=== PATIENT | male | born 2000 | race Caucasian/White ===

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

== ENCOUNTER → 2020-01-15 | Outpatient (CLI) | payer OTHER | LOC: M LABSMTC 13:05 | PROVIDERS: ATTEND Family Medicine | DX: Z20.828 Contact with and (suspected) exposure to other viral communicable diseases (principal) | CPT/HCPCS: C9803; U0003 ==

== ENCOUNTER 2020-01-21 08:50 | Emergency (ER) | payer OTHER ==
[~2020-01-21] VITALS: Ht 172.7 cm; Wt 63.5 kg
--- NOTE | 2020-01-21 10:29 | REPVR ---
PROCEDURE INFORMATION: Exam: CT Neck Without Contrast Exam date and time: 01/21/2020 9:54 AM Age: 19 years old Clinical indication: Injury or trauma; Other: Hanging; Constriction/strangulation; Additional info: Neck injury/pain TECHNIQUE: Imaging protocol: Computed tomography images of the neck without contrast. Radiation optimization: All CT scans at this facility use at least one of these dose optimization techniques: automated exposure control; mA and/or kV adjustment per patient size (includes targeted exams where dose is matched to clinical indication); or iterative reconstruction. COMPARISON: No relevant prior studies available. FINDINGS: Brain: The visualized brain parenchyma is unremarkable. Mastoid air cells: The visualized mastoid air cells are clear. Paranasal sinuses: The visualized paranasal sinuses are clear. There are no air fluid levels to suggest acute sinusitis. Nasopharynx: Unremarkable. Oropharynx: Unremarkable. No significant tonsillar enlargement. Hypopharynx: Unremarkable. Larynx: Unremarkable. Normal epiglottis. Retropharyngeal space: Unremarkable. Submandibular/Parotid glands: Normal. Glands are normal in size. Thyroid: Normal. No enlarged or calcified nodules. Lymph nodes: Unremarkable. No lymphadenopathy. Trachea: Visualized trachea is unremarkable. Lungs: The visualized portions of the lung apices are normal. Bones/joints: The visualized osseous structures are unremarkable. No acute fracture or dislocation is seen. The cervical vertebral bodies are normal height and alignment.No acute fracture or dislocation is seen. The atlantoaxial articulation is normal. Soft tissues: The prevertebral soft tissues appear normal. IMPRESSION: No significant tracheal injury is seen. No discrete solid or cystic masses are identified. There is no evidence for subcutaneous emphysema. Electronically signed by: Nii Carrion On 01/21/2020 10:29:15 AM
[2020-01-21 11:07] VITALS: BP 147/81
== END 2020-01-21 11:10 | disposition home or self-care (01) ==
LOC: M ED 08:50
DX: S19.9XXA Unspecified injury of neck, initial encounter (principal); Y92.9 Unspecified place or not applicable; Y93.9 Activity, unspecified; Y99.9 Unspecified external cause status; F17.200 Nicotine dependence, unspecified, uncomplicated; F41.9 Anxiety disorder, unspecified; F31.9 Bipolar disorder, unspecified

== ENCOUNTER → 2020-03-07 | Outpatient (CLI) | payer OTHER | LOC: M LABSMTC 11:31 | PROVIDERS: ATTEND Family Medicine | DX: Z20.828 Contact with and (suspected) exposure to other viral communicable diseases (principal) ==

== ENCOUNTER 2020-03-15 09:47 | Emergency (ER) | payer OTHER ==
[~2020-03-15] VITALS: Ht 170.2 cm; Wt 59.8 kg
[2020-03-15 09:47] VITALS: BP 131/82
[2020-03-15] MEDS ORDERED: LIDOCAINE 2% MDV 20ML VIAL SC ONE (10:30)
== END 2020-03-15 12:45 | disposition home or self-care (01) ==
LOC: M ED 09:47
DX: S61.212A Laceration without foreign body of right middle finger without damage to nail, initial encounter (principal); W01.198A Fall on same level from slipping, tripping and stumbling with subsequent striking against other object, initial encounter; Y92.019 Unspecified place in single-family (private) house as the place of occurrence of the external cause; Y93.9 Activity, unspecified; F41.9 Anxiety disorder, unspecified; F31.9 Bipolar disorder, unspecified; F17.200 Nicotine dependence, unspecified, uncomplicated

== ENCOUNTER → 2020-04-06 | Outpatient (CLI) | payer SELFPAY ==
[~2020-04-06] MED LIST changes: +NICO1DIS12 TD; -NICO21DI31 TD
== END ==
LOC: M LABSMTC 12:58
PROVIDERS: ATTEND Pediatrics
DX: Z20.828 Contact with and (suspected) exposure to other viral communicable diseases (principal)

== ENCOUNTER 2020-06-12 01:32 | Emergency (ER) | payer OTHER, SELFPAY ==
[~2020-06-12] VITALS: Ht 172.7 cm; Wt 59.6 kg
[2020-06-12 01:33] VITALS: BP 135/87
--- OUTSIDE RECORDS SUMMARY | 2020-06-12 01:41 | CCD ---
Author Author [facility] Organization [facility] Address Unknown Phone Unavailable Support Name Relationship Address Phone [facility] [place] [address] Unavailable [place] [address] SK* Next Of Kin [address] [place] [address] MARCELINO [place] [address] Joni Irving Next Of Kin Unknown Unavailable Eloisa Rg Next Of Kin [address] [place] [address] Karuna Milner Next Of Kin [address] [place] [address] ST Next Of Kin Unknown Unavailable Dominga Mcdonald Next Of Kin [address] [place] [address] THEODORE WHARTON Next Of Kin [address] [id number] STATED, NONE Next Of Kin Unknown Jordan Malloy MD Next Of Kin [address] [place] [address] ROBERTA MELCHOR Next Of Kin Unknown NO, ONE Next Of Kin Unknown JONI LEBLANC Next Of Kin [address] [place] [address] UE Next Of Kin Unknown Unavailable TONNY MARIE Next Of Kin [address] [place] [address] ELINA MORILLO Next Of Kin [address] [id number] [facility] Next Of Kin [address] [place] [address] [place] [id number] STEVE FALCON Next Of Kin [address] [place] [address] Sandy Rodriguez Next Of Kin [address] [place] [address] ANANYA HOU Next Of Kin [address] [place] [address] UN Next Of Kin Unknown Unavailable Rickey HOU Next Of Kin [address] [place] [address] SANDY ANTHONY Next Of Kin [address] [place] [address] CHILD Next Of Kin Unknown Unavailable SANDY WALTON Next Of Kin [address] [address] Care Team Providers 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 Role Phone KAREN SEAMAN MIXER WET POUR Unavailable Unavailable KAREN SEAMAN MIXER WET POUR Unavailable Unavailable KAREN SEAMAN MIXER WET POUR Unavailable Unavailable KAREN SEAMAN MIXER WET POUR Unavailable Unavailable KAREN SEAMAN MIXER WET POUR Unavailable Unavailable KAREN SEAMAN MIXER WET POUR Unavailable Unavailable MELIZA, L TIMOTHY PA Unavailable Unavailable MELIZA, L TIMOTHY PA Unavailable Unavailable MELIZA, L TIMOTHY PA Unavailable Unavailable MELIZA, L TIMOTHY PA Unavailable Unavailable MELIZA, L TIMOTHY PA Unavailable Unavailable MELIZA, L TIMOTHY PA Unavailable Unavailable MELIZA, L TIMOTHY PA Unavailable Unavailable MELIZA, L TIMOTHY PA Unavailable Unavailable MELIZA, L TIMOTHY PA Unavailable Unavailable MELIZA, L TIMOTHY PA Unavailable Unavailable MELIZA, L TIMOTHY PA Unavailable Unavailable MELIZA, L TIMOTHY PA Unavailable Unavailable MELIZA, L TIMOTHY PA Unavailable Unavailable MELIZA, L TIMOTHY PA Unavailable Unavailable MELIZA, L TIMOTHY PA Unavailable Unavailable MELIZA, L TIMOTHY PA Unavailable Unavailable MELIZA, L TIMOTHY PA Unavailable Unavailable MELIZA, L TIMOTHY PA Unavailable Unavailable MELIZA, L TIMOTHY PA Unavailable Unavailable HERNANDEZ, GUALBERTO Unavailable Unavailable Dominga Arthur COMMUNITY SPORTS COORDINATOR COMMUNITY SPORTS COORDINATOR Unavailable Unavailable Saroj Arthur COMMUNITY SPORTS COORDINATOR-BC Unavailable Unavailable Jerson F Dominga COMMUNITY SPORTS COORDINATOR-BC Unavailable Unavailable Jerson, F Dominga COMMUNITY SPORTS COORDINATOR-BC Unavailable Unavailable Jerson, F Dominga COMMUNITY SPORTS COORDINATOR-BC Unavailable Unavailable Jerson F Dominga COMMUNITY SPORTS COORDINATOR-BC Unavailable Unavailable Arthur, F Dominga COMMUNITY SPORTS COORDINATOR-BC Unavailable Unavailable Saroj Arthur Dominga COMMUNITY SPORTS COORDINATOR-BC Unavailable Unavailable Arthur F Dominga COMMUNITY SPORTS COORDINATOR-BC Unavailable Unavailable Arthur, F Dominga COMMUNITY SPORTS COORDINATOR-BC Unavailable Unavailable Arthur, F Dominga COMMUNITY SPORTS COORDINATOR-BC Unavailable Unavailable Arthur, F Dominga COMMUNITY SPORTS COORDINATOR-BC Unavailable Unavailable Arthur, F Dominga COMMUNITY SPORTS COORDINATOR-BC Unavailable Unavailable Arthur, F Dominga COMMUNITY SPORTS COORDINATOR-BC Unavailable Unavailable Arthur, F Dominga COMMUNITY SPORTS COORDINATOR-BC Unavailable Unavailable Arthur, F Dominga COMMUNITY SPORTS COORDINATOR-BC Unavailable Unavailable Arthur, F Dominga COMMUNITY SPORTS COORDINATOR-BC Unavailable Unavailable Arthur, F Dominga COMMUNITY SPORTS COORDINATOR-BC Unavailable Unavailable Arthur, F Dominga COMMUNITY SPORTS COORDINATOR-BC Unavailable Unavailable Arthur, F Dominga COMMUNITY SPORTS COORDINATOR-BC Unavailable Unavailable Arthur, F Dominga COMMUNITY SPORTS COORDINATOR-BC Unavailable Unavailable Arthur, F Dominga COMMUNITY SPORTS COORDINATOR-BC Unavailable Unavailable Arthur, F Dominga COMMUNITY SPORTS COORDINATOR-BC Unavailable Unavailable BUBBA, DOT BILLY PA-C Unavailable Unavailable BUBBA, DOT BILLY PA-C Unavailable Unavailable BUBBA, DOT BILLY PA-C Unavailable Unavailable BUBBA, DOT BILLY PA-C Unavailable Unavailable BUBBA, DOT BILLY PA-C Unavailable Unavailable BUBBA, DOT BILLY PA-C Unavailable Unavailable BUBBA, DOT BILLY PA-C Unavailable Unavailable BUBBA, DOT BILLY PA-C Unavailable Unavailable BUBBA, DOT BILLY PA-C Unavailable Unavailable Rickey Reddy MD Unavailable Unavailable Rickey Reddy MD Unavailable Unavailable Rickey Reddy MD Unavailable Unavailable BROWN, L VICENTE Unavailable Unavailable MORA, RASHAD KARUNA RPA-C Unavailable Unavailable MORA, RASHAD KARUNA RPA-C Unavailable Unavailable MORA, RASHAD KARUNA RPA-C Unavailable Unavailable MORA, RASHAD KARUNA RPA-C Unavailable Unavailable MORA, RASHAD KARUNA RPA-C Unavailable Unavailable MORA, RASHAD KARUNA RPA-C Unavailable Unavailable MORA, RASHAD KARUNA RPA-C Unavailable Unavailable MORA, RASHAD KARUNA RPA-C Unavailable Unavailable MORA, RASHAD KARUNA RPA-C Unavailable Unavailable MORA, RASHAD KARUNA RPA-C Unavailable Unavailable MORA, RASHAD KARUNA RPA-C Unavailable Unavailable MORA, RASHAD KARUNA RPA-C Unavailable Unavailable MORA, RASHAD KARUNA RPA-C Unavailable Unavailable MORA, RASHAD KARUNA RPA-C Unavailable Unavailable MORA, RASHAD KARUNA RPA-C Unavailable Unavailable MORA, RASHAD KARUNA RPA-C Unavailable Unavailable MORA, RASHAD KARUNA RPA-C Unavailable Unavailable MORA, RASHAD KARUNA RPA-C Unavailable Unavailable MORA, RASHAD KARUNA RPA-C Unavailable Unavailable MORA, RASHAD KARUNA RPA-C Unavailable Unavailable MORA, RASHAD KARUNA RPA-C Unavailable Unavailable MORA, RASHAD KARUNA RPA-C Unavailable Unavailable MORA, RASHAD KARUNA RPA-C Unavailable Unavailable MORA, RASHAD KARUNA RPA-C Unavailable Unavailable MORA, RASHAD KARUNA RPA-C Unavailable Unavailable MORA, RASHAD KARUNA RPA-C Unavailable Unavailable MORA, RASHAD KARUNA RPA-C Unavailable Unavailable MORA, RASHAD KARUNA RPA-C Unavailable Unavailable MORA, RASHAD KARUNA RPA-C Unavailable Unavailable MORA, RASHAD KARUNA RPA-C Unavailable Unavailable MORA, RASHAD KARUNA RPA-C Unavailable Unavailable MORA, RASHAD KARUNA RPA-C Unavailable Unavailable MORA, RASHAD KARUNA RPA-C Unavailable Unavailable MORA, RASHAD KARUNA RPA-C Unavailable Unavailable MORA, RASHAD KARUNA RPA-C Unavailable Unavailable MORA, RASHAD KARUNA RPA-C Unavailable Unavailable MORA, RASHAD KARUNA RPA-C Unavailable Unavailable MORA, RASHAD KARUNA RPA-C Unavailable Unavailable MORA, RASHAD KARUNA RPA-C Unavailable Unavailable ELIZABETH, EL Unavailable Unavailable DESJARLAIS, LISA MIXER WET POUR Unavailable Unavailable DESJARLAIS, LISA MIXER WET POUR Unavailable Unavailable DESJARLAIS, LISA MIXER WET POUR Unavailable Unavailable DESJARLAIS, LISA MIXER WET POUR Unavailable Unavailable DESJARLAIS, LISA MIXER WET POUR Unavailable Unavailable DESJARLAIS, LISA MIXER WET POUR Unavailable Unavailable DESJARLAIS, LISA MIXER WET POUR Unavailable Unavailable DESJARLAIS, LISA MIXER WET POUR Unavailable Unavailable DESJARLAIS, LISA MIXER WET POUR Unavailable Unavailable Tobin, Eloisa COMMUNITY SPORTS COORDINATOR COMMUNITY SPORTS COORDINATOR Unavailable Unavailable [facility], RFROST MORA PA KARUNA Unavailable Unavailable Tobin, A Eloisa COMMUNITY SPORTS COORDINATOR Unavailable Unavailable Tobin, A Eloisa COMMUNITY SPORTS COORDINATOR Unavailable Unavailable Tobin, A Eloisa COMMUNITY SPORTS COORDINATOR Unavailable Unavailable Tobin, A Eloisa COMMUNITY SPORTS COORDINATOR Unavailable Unavailable Tobin, A Eloisa COMMUNITY SPORTS COORDINATOR Unavailable Unavailable Tobin, A Eloisa COMMUNITY SPORTS COORDINATOR Unavailable Unavailable Tobin, A Eloisa COMMUNITY SPORTS COORDINATOR Unavailable Unavailable Tobin, A Eloisa COMMUNITY SPORTS COORDINATOR Unavailable Unavailable Tobin, A Eloisa COMMUNITY SPORTS COORDINATOR Unavailable Unavailable Tobin, A Eloisa COMMUNITY SPORTS COORDINATOR Unavailable Unavailable Tobin, A Eloisa COMMUNITY SPORTS COORDINATOR Unavailable Unavailable Tobin, A Eloisa COMMUNITY SPORTS COORDINATOR Unavailable Unavailable Tobin, A Eloisa COMMUNITY SPORTS COORDINATOR Unavailable Unavailable Tobin, A Eloisa COMMUNITY SPORTS COORDINATOR Unavailable Unavailable Tobin, A Eloisa COMMUNITY SPORTS COORDINATOR Unavailable Unavailable Tobin, A Eloisa COMMUNITY SPORTS COORDINATOR Unavailable Unavailable Tobin, A Eloisa COMMUNITY SPORTS COORDINATOR Unavailable Unavailable Tobin, A Eloisa COMMUNITY SPORTS COORDINATOR Unavailable Unavailable Tobin, A Eloisa COMMUNITY SPORTS COORDINATOR Unavailable Unavailable Tobin, A Eloisa COMMUNITY SPORTS COORDINATOR Unavailable Unavailable Tobin, A Eloisa COMMUNITY SPORTS COORDINATOR Unavailable Unavailable Tobin, A Eloisa COMMUNITY SPORTS COORDINATOR Unavailable Unavailable Tobin, A Eloisa COMMUNITY SPORTS COORDINATOR Unavailable Unavailable Tobin, A Eloisa COMMUNITY SPORTS COORDINATOR Unavailable Unavailable Tobin, A Eloisa COMMUNITY SPORTS COORDINATOR Unavailable Unavailable Tobin, A Eloisa COMMUNITY SPORTS COORDINATOR Unavailable Unavailable Tobin, A Eloisa COMMUNITY SPORTS COORDINATOR Unavailable Unavailable Tobin, A Eloisa COMMUNITY SPORTS COORDINATOR Unavailable Unavailable Re-disclosure Warning The records that you are about to access may contain information from federally-assisted alcohol or drug abuse programs. If such information is present, then the following federally mandated warning applies: This information has been disclosed to you from records protected by federal confidentiality rules (42 CFR part 2). The federal rules prohibit you from making any further disclosure of this information unless further disclosure is expressly permitted by the written consent of the person to whom it pertains or as otherwise permitted by 42 CFR part 2. A general authorization for the release of medical or other information is NOT sufficient for this purpose. The Federal rules restrict any use of the information to criminally investigate or prosecute any alcohol or drug abuse patient.The records that you are about to access may contain highly sensitive health information, the redisclosure of which is protected by Article 27-F of the [facility] Public Health law. If you continue you may have access to information: Regarding HIV / AIDS; Provided by facilities licensed or operated by the [facility] Office of Mental Health; or Provided by the [facility] Office for People With Developmental Disabilities. If such information is present, then the following [facility] mandated warning applies: This information has been disclosed to you from confidential records which are protected by state law. State law prohibits you from making any further disclosure of this information without the specific written consent of the person to whom it pertains, or as otherwise permitted by law. Any unauthorized further disclosure in violation of state law may result in a fine or detention sentence or both. A general authorization for the release of medical or other information is NOT sufficient authorization for further disc losure. Allergies and Adverse Reactions Type Description Substance Reaction Status Data Source(s ) Drug Class NO KNOWN ALLERGIES NO KNOWN ALLERGIES [facility] Family History Family Member Name Family Member Gender Family Member Status Date o f Status Description Data Source(s) Unknown Male Problem MEDENT ([facility]) () Encounters Encounter Providers Location Date Indications Data Source(s ) Karen Seaman NPP: [address] [place] [id number], Ph. Attender: KAREN SEAMAN NP [place] - [facility] Medical 05/24/2020 12:00:00 AM EST [facility] ([facility]) Outpatient Attender: Eloisa PENA 02/08/2020 03:5 3:01 PM EDT [facility] Outpatient Attender: JEAN ARREOLA 02/05/2020 01:19:01 P M EDT [facility] Outpatient Attender: Eloisa PENA 01/28/2020 04:1 6:01 PM EDT [facility] Outpatient Attender: JEAN ARREOLA 01/27/2020 10:34:00 A M EDT [facility] Outpatient Attender: Eloisa ARREOLA 01/27/2020 07:5 5:01 AM EDT [facility] Outpatient Attender: Eloisa ARREOLA 01/25/2020 12:1 8:01 PM EDT [facility] Outpatient Attender: JEAN ARREOLA 01/25/2020 10:46:00 A M EDT [facility] Outpatient Attender: JEAN ARREOLA 01/25/2020 08:57:01 A M EDT [facility] Emergency Attender: Brandon Reddy MD [id number] 06:10:00 PM EDT - 01/24/2020 03:52:00 AM EDT Laceration without foreign body of lip, initial encounter [facility] Laceration without foreign body of lip, initial encounter Patient discharged. Emergency Attender: TIMOTHY PARKER 06/2019 04:05:00 PM EDT - 01/23/2020 10:00:00 PM EDT [facility] Patient discharged. Outpatient Attender: Eloisa PENA FP 01/22/2020 10:4 8:02 AM EDT [facility] Outpatient Attender: Eloisa PENA FP 01/19/2020 08:3 2:00 AM EDT [facility] Outpatient Attender: Eloisa PENA FP 01/15/2020 01:3 2:01 PM EDT [facility] Outpatient Attender: JEAN PENA FP 01/15/2020 08:42:00 A M EDT [facility] Outpatient Attender: JEAN PENA FP 01/11/2020 11:27:01 A M EDT [facility] Outpatient Attender: JEAN PENA FP 12/18/2019 03:08:00 P M EDT [facility] Outpatient Attender: JEAN PENA FP 12/18/2019 10:14:03 A M EDT [facility] Outpatient Attender: Eloisa PENA FP 12/18/2019 10:1 3:01 AM EDT [facility] Outpatient Attender: JEAN PENA FP 12/18/2019 09:29:01 A M EDT [facility] Outpatient Attender: JEAN PENA FP 12/18/2019 09:21:00 A M EDT [facility] Outpatient Attender: JEAN PENA FP 12/17/2019 04:28:00 P M EDT [facility] Outpatient Attender: Eloisa PENA FP 12/17/2019 03:3 6:04 PM EDT [facility] Outpatient Attender: Eloisa PENA FP 12/17/2019 02:2 9:00 PM EDT [facility] Outpatient Attender: Eloisa PENA FP 12/17/2019 02:2 8:01 PM EDT [facility] Outpatient Attender: Eloisa PENA FP 12/17/2019 01:4 7:02 PM EDT [facility] Outpatient Attender: JEAN PENA FP 12/17/2019 01:13:00 P M EDT [facility] Outpatient Attender: JEAN PENA FP 12/17/2019 12:38:01 P M EDT [facility] Outpatient Attender: Eloisa ARREOLA 12/16/2019 03:5 4:01 PM EDT [facility] Outpatient Attender: Eloisa PENA FP 12/15/2019 08:3 9:01 AM EDT [facility] Outpatient Attender: JEAN PENA FP 11/18/2019 11:20:00 A M EDT [facility] Outpatient Attender: VICENTE DANIELS 11/12/2019 05:00:00 PM E [facility] Outpatient Attender: LISA SYKES MIXER WET POUR 11/10/2019 01: 40:00 PM [facility] Preadmit Attender: VICENTE DANIELS 11/10/2019 08:06:00 AM E [facility] Admission cancelled. Disregard status an d admitted date. Outpatient Attender: LISA SYKES NP 10/13/2019 01: 00:00 PM [facility] Outpatient Attender: JEAN ARREOLA 10/13/2019 09:55:00 A M EDT [facility] Outpatient Attender: JEAN PENA FP 10/06/2019 10:04:01 A M EDT [facility] Outpatient Attender: VICENTE DANIELS 10/05/2019 06:00:00 PM E [facility] Outpatient Attender: Eloisa PENA FP 09/25/2019 11:1 6:00 AM EDT [facility] Outpatient Attender: LISA SYKES MIXER WET POUR 09/22/2019 11: 40:00 AM [facility] Outpatient Attender: JEAN PENA FP 09/19/2019 12:14:36 A M EDT [facility] Outpatient Attender: JEAN PENA FP 09/18/2019 11:28:00 A M EDT [facility] Outpatient Attender: Eloisa ARREOLA 09/17/2019 03:0 1:00 PM EDT [facility] Outpatient Attender: JEAN ARREOLA 09/16/2019 09:01:04 P M EDT [facility] Outpatient Attender: JEAN ARREOLA 09/16/2019 11:50:00 A M EDT [facility] Outpatient Attender: JEAN ARREOLA 09/15/2019 04:14:02 P M EDT [facility] Outpatient Attender: JEAN Rudd COMMUNITY SPORTS COORDINATOR 09/15/2019 04:14:02 P M EDT [facility] Outpatient Attender: Eloisa Rudd COMMUNITY SPORTS COORDINATOR 09/15/2019 04:1 4:01 PM EDT [facility] Outpatient Attender: Eloisa Rudd COMMUNITY SPORTS COORDINATOR 09/14/2019 12:2 0:00 AM EDT [facility]patient [facility]: [facility] 09/14/2019 12:19:59 A M EDT [facility] Outpatient Attender: Eloisa Rudd [facility] 09/13/2019 07:4 3:00 PM EDT [facility] Outpatient Attender: COMMUNITY SPORTS COORDINATOR Tobin [facility] 09/11/2019 03:46:01 P M EDT [facility]patient Attender: JEAN Rudd [facility] 09/11/2019 03:35:00 P M EDT [facility] Outpatient Attender: VICENTE DANIELS 09/09/2019 04:00:00 PM E [facility] Outpatient Attender: LISA SYKES MIXER WET POUR 09/08/2019 03: 40:00 PM EDT [facility] Outpatient Attender: JEAN Rudd [facility] 09/08/2019 02:17:00 P M EDT [facility] Outpatient Attender: JEAN Rudd [facility] 09/08/2019 10:45:02 A M EDT [facility] Outpatient Attender: JEAN Rudd [facility] 09/08/2019 10:44:00 A M EDT [facility] Outpatient Attender: COMMUNITY SPORTS COORDINATOR Tobin [facility] 09/07/2019 10:02:00 A M EDT [facility] Outpatient Attender: VICENTE DANIELS 09/03/2019 09:30:00 AM E [facility] Outpatient Attender: ROLAN HOLT [facility] 07/22 05:12:00 PM EDT [facility] Outpatient Attender: KARUNA ZAPATA [facility] 08/18/2019 04:28:00 PM EDT [facility] Outpatient Attender: VICENTE DANIELS 08/12/2019 11:00:00 AM E [facility] Outpatient Attender: LISA SYKES MIXER WET POUR 08/05/2019 01: 20:00 PM [facility] Outpatient Attender: VICENTE DANIELS 08/03/2019 05:00:00 PM E [facility] Outpatient Attender: KARUNA ZAPATA [facility] 07/24/2019 10:00:02 AM EDT [facility] Outpatient Attender: MANGERMÁN ABBY MARESUPPER [facility] 06/2019 10:00:01 AM EDT [facility] Outpatient Attender: ROLAN HOLT [facility] 04/2019 02:30:03 PM EDT [facility] Outpatient Attender: KARUNA ZAPATA [facility] 07/22/2019 02:30:02 PM EDT [facility] Outpatient Attender: ROLAN [facility]ESUPPER [facility] 04/2019 02:26:59 PM EDT [facility] Outpatient Attender: LISA SYKES MIXER WET POUR 07/22/2019 02: 20:00 PM [facility] Outpatient Attender: VICENTE DANIELS 07/22/2019 01:30:00 PM [facility] Outpatient Attender: KARUNA ZAPATA [facility] 07/20/2019 02:48:02 PM EDT [facility] Outpatient Attender: KARUNA ZAPATA 07/20/2019 01:34:01 PM EDT [facility] Outpatient Attender: JEAN PENA 07/20/2019 11:58:00 AM EDT [facility] Outpatient Attender: BILLY BEDOLLACAttender: EL JOHNSON 07/20/2019 11:40:00 AM [facility] Outpatient Attender: VICENTE DANIELS 07/15/2019 11:00:00 AM [facility] Outpatient Attender: LISA SYKES MIXER WET POUR 07/15/2019 10: 40:00 AM [facility] Outpatient Attender: Dominga ARREOLA 07/08/2019 11: 07:00 AM EDT [facility] Outpatient Attender: LISA SYKES MIXER WET POUR 07/03/2019 09: 07:00 AM [facility] Outpatient Attender: JEAN ARREOLA 07/02/2019 04:42:00 PM EDT [facility] Outpatient Attender: JEAN ARREOLA 07/02/2019 12:26:[address] [facility] [address] [place] [address] 07/02/2019 12:00:00 AM EDT eCW1 ([facility] [place] [address] [facility] [place] [address] 07/02/2019 12:00:00 AM EDT eCW1 ([facility]) Outpatient Attender: VICENTE DANIELS 07/01/2019 04:00:00 PM [facility] Outpatient Attender: Dominga ARREOLA 06/30/2019 11: 28:00 AM EDT [facility] Outpatient Attender: Dominga ARREOLA 06/25/2019 09: 50:01 AM [facility] Outpatient Attender: JEAN ARREOLA 06/18/2019 09:01:04 PM [facility] Outpatient Attender: JEAN ARREOLA 06/18/2019 02:58:01 PM [facility]patient Attender: JEAN ARREOLA 06/18/2019 02:51:00 PM [facility] Outpatient Attender: JEAN ARREOLA 06/18/2019 02:48:00 PM [facility] Outpatient Attender: JEAN ARREOLA 06/18/2019 02:47:01 PM [facility] Outpatient Attender: JEAN ARREOLA 06/18/2019 11:49:00 AM [facility] Outpatient Attender: JEAN ARREOLA 06/18/2019 11:48:01 AM [facility] Outpatient Attender: JEAN ARREOLA 06/18/2019 10:40:02 AM [facility] Outpatient Attender: JEAN ARREOLA 06/18/2019 10:34:01 AM [facility] Outpatient Attender: JEAN ARREOLA 06/18/2019 09:40:00 AM [facility] Outpatient Attender: JEAN ARREOLA 06/18/2019 09:38:48 AM [facility] Outpatient Attender: JEAN ARREOLA 06/16/2019 03:35:01 PM EST [facility] Outpatient Attender: VICENTE DANIELS 06/16/2019 12:41:00 PM E [facility] Outpatient Attender: JEAN ARREOLA 06/15/2019 09:54:01 AM EST [facility] Outpatient Attender: GUALBERTO HERNANDEZ 05/25/2019 01:58:00 PM E [facility] Outpatient Attender: VICENTE LEON 01/22/2019 09:55:00 AM E [facility] Outpatient Attender: VICENTE LEON 01/21/2019 05:59:00 PM [facility] Outpatient Attender: EL ELIZABETH 01/21/2019 11:00:00 AM ED [facility] Immunizations Vaccine Date Status Description Data Source(s) Tdap 01/24/2020 12:00:00 AM EDT completed Tdap 01/24/2020 [facility] HPV9 06/18/2019 12:00:00 AM EST completed 06/18/2019 0.5 mL [facility] ([facility]) Medications Medication Brand Name Start Date Product Form Dose Route Admi nistrative Instructions Pharmacy Instructions Status Indications Reaction Description Data Source(s) bacitracin ointment [id number] 01/24/2020 03:15:00 AM EDT Topical completed Topical, Once, Sun 1 at 0315, For 1 dose
Apply to lip and chin
[facility] Medication administered onsite 0.5 ML Bordetella pertussis filamentous hemagglutinin vaccine, inactivated 0.016 MG/ML / Bordetella pertussis pertactin vaccine, inactivated 0.005 UNT/ML / Bordetella pertussis toxoid vaccine, inactivated 0.016 MG/ML / diphtheria toxoid vaccine, inactivat Tdap (BOOSTRIX) injection 0.5 mL Tdap (BOOSTRIX) injection 0.5 mL 01/24/2020 01:30:00 AM EDT 0.5 mL Intramuscular comp leted 0.5 mL, Intramuscular, Once, 01/24/20 at 0130, For 1 dose [facility] Medication administered onsite [id number] (LET) 4-0.05-0.5 % topical gel [id number] 01/24/2020 01:15:00 AM EDT Topical completed Topical, Once, 01/24/20 at 0115, For 1 dose
For TOPICAL use ONLY.
[facility] Medication administered onsite Zofran ODT 4 MG UNK 07/02/2019 12:00:00 AM EDT active 1 tablet on the tongue and allow to dissolve eCW1 ([facility] [facility]) 500 mg 05/26/2019 12:00:00 AM EST tablet 2 TAKE 2 TABLETS BY MOUTH NOW TAKE 2 TABLETS BY MOUTH NOW SOLD: 05/26/2019 [facility] olanzapine 10 MG Oral Tablet OLANZapine (ZYPREXA) 10 M G tablet OLANZapine (ZYPREXA) 10 MG tablet 03/22/2019 12:00:00 AM EST 10 mg Oral active Take 1 tablet (10 mg total) by mouth nightly [facility] oxcarbazepine 150 MG Oral Tablet OXcarbazepine (TRILEP YASH) 150 MG tablet OXcarbazepine (TRILEPTAL) 150 MG tablet 03/22/2019 12:00:00 AM EST 150 mg Oral active Take 1 tablet (150 m g total) by mouth 2 (two) times a day [facility] Prazosin 1 MG Oral Capsule prazosin 1 mg capsule prazosin 1 mg capsule completed prazosin 1 MG Oral Capsul e CONNELLY ([facility]) Ondansetron 4 MG Disintegrating Oral Tab let ondansetron 4 mg disintegrating tablet ondansetron 4 mg disintegrating tablet completed ondansetron 4 MG Disintegrating Oral Tablet [facility] ([facility]) 24 HR Nicotine 0.875 MG/HR Transdermal P atch nicotine 21 mg/24 hr daily transdermal patch nicotine 21 mg/24 hr daily transdermal patch completed 24 HR nicotine 0.875 MG/HR Trans dermal System HONEY ([facility]) olanzapine 10 MG Oral Tablet olanzapine 10 mg tablet olanzapine 10 mg tablet completed olanzapine 10 MG Oral Tablet [facility]ONE[facility] ([facility]) Escitalopram 10 MG Oral Tablet escitalopram 10 mg tabl et escitalopram 10 mg tablet completed escitalopram 10 MG Oral Tablet [facility] ([facility]) Hydroxyzine Hydrochloride 25 MG Oral Tablet hydroxyzin e HCl 25 mg tablet hydroxyzine HCl 25 mg tablet completed hydroxyzine hydrochloride 25 MG Oral Tablet [facility] ([facility]) Docusate Sodium 100 MG Oral Capsule [DOK] DOK 100 mg capsule DOK 100 mg capsule completed docusate sodiu m 100 MG Oral Capsule [DOK] [facility] ([facility]) Azithromycin 500 MG Oral Tablet azithromycin 500 mg ta blet azithromycin 500 mg tablet completed azithromycin 50 0 MG Oral Tablet [facility] ([facility]) [place] Carbonate 150 MG Oral Capsule lithium carbonat e 150 mg capsule lithium carbonate 150 mg capsule completed lithium carbonate 150 MG Oral Capsule [facility] ([facility]) 24 HR venlafaxine 37.5 MG Extended Relea se Oral Capsule venlafaxine ER 37.5 mg capsule,extended release 24 hr venlafaxine ER 37.5 mg capsule,extended release 24 hr completed 24 HR v enlafaxine 37.5 MG Extended Release Oral Capsule [facility] ([facility]) olanzapine 2.5 MG Oral Tablet olanzapine 2.5 mg tablet olanz apine 2.5 mg tablet completed olanzapine 2.5 MG Oral Tablet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 Moderately Severe Diagnosis Recommendation: Major Depression Functional Impairment: Very DifficultToday's Follow-Up Action Depression follow-up done. Follow-Up Action: Referred to Behavioral Health Email Operations Manager to reestablish behavioral healthcareScreening, Brief Intervention, & Referral to Treatment (SBIRT)Pre- Screening Questions How many times have you have 5 or more drinks in a day? 20How many times have you used an illegal drug or used a prescription medication for a non-medical reason? 365Performed by: Senait Crane LPN, December 18, 2019 9:24 AMPatient History Medical History:Hx of clonidine and lithium hx of Psychiatry . Diagnosed with Bipolar disorder in 2016Surgical History:No known surgical historyFamily History:No known family historySocial/Personal History:Belen Russo lives in his own home with a friendcarthage high 11thprice chopper carthageSexual orientation: Miller. Sexually Active: Yes. Advised to Quit/Tobacco Education: YesChief Complaintfollow-up visitHistory of Present Illness (HPI)19 yo male here for med check. Pt was admitted to [facility] 12/10/19- 12/15/2019, for suicide attempt by hanging and overdose of his prescription medications. They stopped his lithium and clonidine, started on Venlafaxine 37.5mg once daily (7 day supply with 4 refills). Pt states he can not be on venlaflaxine anymore due to it changing his mood, increased violence, feels more manic, irritable. Reports increasing panic attacks. Stopped seeing [facility] about 1 month ago. 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 Also admits to having marijuana in his drug test. Follows with [facility] for alcoholism and marijuana abuse. Follows twice weekly. Admits to heavier alcohol use the last few days. Also complaining of constipation and asking for stool softener. HPI performed by: Karuna PARKER, December 18, 2019 9:40 AMTransitions of Care InboundProblem ReviewProblem List was reviewed and/or updated during this visit.Medication Reconciliation & ReviewMedication List was reviewed and/or updated during this visit, including review of any divh-wwq-[id number] medications, herbal therapies, and/or supplements.Allergy ReviewAllergy List was reviewed and/or updated during this visit. Patient has no known allergies.Adult Preventive CareScreening Tobacco Screening: Smoking Status: current every day smoker (12/18/2019) Tobacco Use: Currently (12/18/2019) Advised to Quit: Yes (12/18/2019)Labs/Meds/Other Counseling-Nutrition and Physical Activity:BMI Interpretation: Healthy Weight (12/18/2019) Counseling: Done (12/18/2019) Physical Activity: Done (12/18/2019)Review of Systems General: Complains of see HPI. Denies dizziness, fatigue, fever, feeling ill. Cardiovascular: Denies chest pain, palpitations, feeling faint. Respiratory: Denies cough, difficulty breathing, shortness of breath. Gastrointestinal: Complains of see HPI, constipation. Denies nausea, vomiting, diarrhea. Neurologic: Denies weakness, numbness/tingling, slurred speech, feeling faint. Psychiatric: Complains of see HPI, depression, anxiety, mental disturbance. Denies suicidal ideation, homi cidal ideation, hallucinations, paranoia, hearing voices. Physical ExamGeneral Appearance: well nourished, well hydrated, no acute distressEyes, External: conjunctivae and lids normal, EOMICardiovascular, Auscultation: S1, S2 audible; no murmur, rub, or gallop; RRRPeripheral Circulation: no clubbing, cyanosis, edema, or varicositiesAbdomen: soft, non-tender, no masses, bowel sounds normalGait & Station: normalOrientation: oriented to time, place, and personMood & Affect: somewhat pressured speech, good eye contact, goal directed, well keptJudgment & Insight: intactCare Management Plan Transitions of CareInboundRate Your HealthIn general, would you say your health is? Very GoodAssessment & Plan Problems:Added: Tobacco user (ICD-305.1) (IWL73-S99.200) Assessment: Instructions: As above.Constipation, unspecified (XBW85-P40.00) Assessment: Instructions: Daily stool softener as needed.Assessed:Mood disorder (ICD-296.90) (SBK18-A01) Assessment: Patient is insistent that he knows what he needs for medications. He states he needs a medication for panic attacks and that antidepressants make him manic. Denies concern for antianxiety medications to make him depressed, despite recent suicide attempt. He has had a multitude of medication changes, by prescribers and by himself in the last year and is very difficult to obtain stability with his medications. Advised him he needs psychiatry at all times and he was agreeable. Instructions: Encouraged to continue Effexor as prescribed by inpatient psychiatrist. Please give the medications a few weeks before stopping, unless you have significant adverse reaction. Add hydroxyzine at bedtime for insomnia. Referral urgently to Dr. Avila for medication management. Referral for in house counseling services.ANXIETY DISORDER, GENERALIZED (ICD-300.02) (KZS53-K19.1) Assessment: Instructions: As above.Nicotine dependence, unspecified, uncomplicated (ICD10- F17.200) Assessment: Instructions: Smoking cessation counseling was recommended with patient today. Continue with patches.Removed:[place] monitoring (ICD-V58.83) (KXS69-S18.81), Chest pain, unspecified (NRY17-Z40.9), Circumcision requested (ICD-V50.2) (NWB53-J38.2), Trying to give up smoking (VDU82-Q63.0), Well Child Exam WITH Abnormal Findings (under 18) (ICD-V20.2) (ICD10- Z00.121)Patient Instructions/Care Plan: Mood disorder: Encouraged to continue Effexor as prescribed by inpatient psychiatrist. Please give the medications a few weeks before stopping, unless you have significant adverse reaction. Add hydroxyzine at bedtime for insomnia. Referral urgently to Dr. Avila for medication management. Referral for in house counseling services.ANXIETY DISORDER- GENERALIZED: As above.Nicotine dependence- unspecified- uncomplicated: Smoking cessation counseling was recommended with patient today. Continue with patches.Tobacco user: As above.Constipation- unspecified: Daily stool softener as needed. Plan developed in collaboration with patient and/or familyMedications:COLACE 100 MG ORAL CAPSULEHYDROXYZINE HCL 25 MG ORAL TABLETEFFEXOR XR 37.5 MG ORAL CAPSULE EXTENDED RELEASE 24 HOURPREVIDENT 5000 SENSITIVE 1.1-5 % DENTAL PASTECVS WEEKLY PILL PLANNERNICOTINE 21 MG/24HR TRANSDERMAL PATCH 24 HOURMedication Changes:Added: EFFEXOR XR 37.5 MG ORAL CAPSULE EXTENDED RELEASE 24 HOUR-one tablet dailyNew Prescription:HYDROXYZINE HCL 25 MG ORAL TABLET-Take 1 tablet by mouth at bedtime Qty: 7[Tablet] Refills: 4 Method: ElectronicCOLACE 100 MG ORAL CAPSULE-Take 1 capsule po daily for constipation Qty: 30[Capsule] Refills: 1 Method: ElectronicRemov ed:ONDANSETRON HCL 4 MG ORAL TABLET-1 tab po q6h, CLONIDINE HCL 0.1 MG ORAL TABLET-1 tab po daily, LITHIUM CARBONATE 150 MG ORAL CAPSULE-1 tab po bid, OMEPRAZOLE 20 MG ORAL CAPSULE DELAYED RELEASE-1 tab po bidAllergies:No Known Allergies (updated 08/18/2019) Orders:Adult - Ofc Vst, EST, Level IV [CPT-06769] Telepsychiatry Consult [CPT-17107] Mental Health Consult [CPT-72167] Follow-Up Return to clinic: in 4 weeks for follow upAdditional Follow-Up: med checkClinical Visit Summary DeclinedMedications:COLACE 100 MG ORAL CAPSULE (DOCUSATE SODIUM) Take 1 capsule po daily for constipation #30[Capsule] x 1 Route:ORAL Entered and Authorized by: Karuna PARKER Method used: Electronically to [facility] (retail) [address] [place] [address] Note to Pharmacy: Route: ORAL; Indications: CONSTIPATION, UNSPECIFIED RxID: [id number] HCL 25 MG ORAL TABLET (HYDROXYZINE HCL) Take 1 tablet by mouth at bedtime #7[Tablet] x 4 Route:ORAL Entered and Authorized by: Karuna PARKER Method used: Electronically to [facility] (retail) [address] [place] [address] Note to Pharmacy: Route: ORAL; Indications: MOOD DISORDER;ANXIETY DISORDER, GENERALIZED RxID: [id number] signed by Karuna PARKER on 12/18/2019 at 10:12 AM Name Value Range Interpretation Code Description Data Kaylee rce(s) Supporting Document(s) ID Date Data Source [id number] 12/17/2019 01:01:27 PM EDT [facility] Current Problems: Person consulting for explanation of examination or test findings (ICD-V65.8) (BIV35-O24.2)Encounter for general adult medical examination with abnormal findings (ICD-V70.0) (YPJ82-M37.01)Health Screening (ICD-V70.0) (FZB49-S40.9)Nicotine dependence, unspecified, uncomplicated (ICD10- F17.200)Chronic back pain (ICD-724.5) (ICW19-W61.9)Noncompliance with medication regimen (ICD-V15.81) (NZR33-F02.14)Abnormal liver function (ICD-573.9) (ICD10- K76.89)[place] monitoring (ICD-V58.83) (DNR35-A95.81)BMI 21.0-21.9 (ICD-V85.1) (EGX75-J39.21)Fractured dental restorative material without loss of material (ICD-525.63) (GHG00-F95.530)Chest pain, unspecified (DKT02-E43.9)Encounter for general adult medical examination without abnormal findings (ICD10- Z00.00)Circumcision requested (ICD-V50.2) (FLX97-E20.2)Trying to give up smoking (JWY50-Q66.0)Mood disorder (ICD-296.90) (ZPE70-F79)ANXIETY DISORDER, GENERALIZED (ICD-300.02) (PEP61-B26.1)Flat feet (ICD-734) (VKM30-N95.40)Other acne (ICD-706.1) (QPZ45-Q33.8)Well Child Exam WITH Abnormal Findings (under 18) (ICD-V20.2) (JNS91-S36.121)Vaccination (ICD-V05.9) (NUC20-U47)SCOLIOSIS (ICD- 737.30) (ZVP85-U53.9)Current Medications: PREVIDENT 5000 SENSITIVE 1.1-5 % DENTAL PASTE (SOD FLUORIDE-POTASSIUM NITRATE) Use as toothpaste BID peas size; Route: DENTALCVS WEEKLY PILL DIRECTOR OF LAND (ORAL MEDICATION CONTAINERS) Twice daily pill management planner for oral medications to be used weekly; Route: EXTERNALONDANSETRON HCL 4 MG ORAL TABLET (ONDANSETRON HCL) 1 tab po q6h; Route: ORALCLONIDINE HCL 0.1 MG ORAL TABLET (CLONIDINE HCL) 1 tab po daily; Route: ORALLITHIUM CARBONATE 150 MG ORAL CAPSULE (LITHIUM CARBONATE) 1 tab po bid; Route: ORALOMEPRAZOLE 20 MG ORAL CAPSULE DELAYED RELEASE (OMEPRAZOLE) 1 tab po bid; Route: ORALNICOTINE 21 MG/24HR TRANSDERMAL PATCH 24 HOUR (NICOTINE) 1 patch daily for tobacco; Route: TRANSDERMAL Dental Chart: Procedures:Type - CDT Code - Description B - (D0140) Limited oral evaluation - problem focused on Tooth # 8 (Performed by Lesly Calvillo DMD) Chart Notes:saul (Dec 17 2019 1:45PM): Additional PPE requirements due to COVID-19 in the dental setting, N95, surgical mask, hair covering, gown and shield.S: CC:"I had an incident over the weekend and I have several cracked teeth and it is very uncomforatable."O: RMHx (-)per pt. is taking depression medication and was seen in ER for mental health issues. HPI: over the weekend. PL:7 BP: 128/74.no xray needed at this time. Slight sensitivty in multiple areas of the mouth, with no signs of decay or swelling. Very small chips in multiple areas of the mouth. A: DDS recommends to place ShieldForce and Flouride varnish to help relieve sensitivity inside the mouth. Placed prescription toothpaste to [facility]. DX:occlusal trauma.P: Advised pt. to give sensitivty time to dissapear. E-scribe SF 5000 sensitive with no refills Informed Pt about new pain management policy of the clinic regarding about narcotic,told pt to alternate Ibuprophen 600- 800mg and tylenol 500mg every 4 to 6 hrs for pain when needed. Assisted By: AM NV: Lesly Joshua DMD by saul (12/17/2019 1:45 PM): Tooth Notes and Watches: Assessment & Plan Medications:PREVIDENT 5000 SENSITIVE 1.1-5 % DENTAL PASTECVS WEEKLY PILL PLANNERONDANSETRON HCL 4 MG ORAL TABLETCLONIDINE HCL 0.1 MG ORAL TABLETLITHIUM CARBONATE 150 MG ORAL CAPSULEOMEPRAZOLE 20 MG ORAL CAPSULE DELAYED RELEASENICOTINE 21 MG/24HR TRANSDERMAL PATCH 24 HOURMedication Changes:New Prescription:PREVIDENT 5000 SENSITIVE 1.1-5 % DENTAL PASTE-Use as toothpaste BID peas size Qty: 1[Tube] Refills: 0 Method: ElectronicAllergies:No Known Allergies (updated 08/18/2019) Name Value Range Interpretation Code Description Data Kaylee rce(s) Supporting Document(s) ID Date Data Source [id number] 09/15/2019 03:37:05 PM EDT [facility] Measurements & CalculationsHeight: 66 inches 167.64 cm 10 %ileWeight: 130 pounds 8 oz. 59.32 kg 13 %ileBody Mass Index (BMI): 21.14 27 %tileBMI Interpretation: Healthy WeightBody Surface Area (BSA): 1.67Weight Management Education Done (Nutrition/Physical Activity)Vital SignsTemperature: 97.2F 36.22C tympanic Pulse Rate: 80 beats/minuteRespiratory Rate: 17 respirations/minuteBlood Pressure: 111/75 left arm sitting automaticO2 Saturation: 97% room airVital Signs performed by: Senait Crane MA, September 15, 2019 3:43 PMInitial Intake Information From: patientRoom #: 11Infectious Disease / Travel ScreeningRecent travel for you or any close contacts? NoHave you had any close contact with anyone diagnosed with or under investigation for COVID-19 (coronavirus)? NoFever? NoRespiratory symptoms: cough, cold, congestion, shortness of breath, difficulty breathing? NoLoss of smell? NoLoss of taste? NoSmoking, Tobacco, Vaping or Smoke Exposure StatusSmoke Status: current some day smokerTobacco Use: YesDo you vape? NoPassive Smoke Exposure: NoHealthcare HistorySince your last office visit...Have you been admitted to the hospital? NoHave you been to an emergency room (ER) or urgent care clinic? NoHave you [facility] Yes [facility]Int[facility] performed by: Senait Crane MA, September 15, 2019 3:39 PMRate Your HealthIn general, would you say your health is? ExcellentPain AssessmentAre you currently having any pain which... You would like your provider to address? No Affects your activity level? NoFood InsecurityWithin the past year...Did you worry whether your food would run out before you got money to buy more? YesWas there a time when the food you bought didn't last and you didn't have money to get more? YesScreening, Brief Intervention, & Referral to Treatment (SBIRT)Pre-Screening Questions How many times have you have 5 or more drinks in a day? 0How many times have you used an illegal drug or used a prescription medication for a non-medical reason? 20Performed by: Senait Crane MA, September 15, 2019 3:41 PMPatient History Medical History:Hx of clonidine and lithium hx of Psychiatry . Diagnosed with Bipolar disorder in 2016Surgical History:No known surgical historyFamily History:No known family historySocial/Personal History: Chief Complaintfollow-up visit: lab and xray resultsHistory of Present Illness (HPI)19 yo male here for follow up visit. Pt states doing well. Pt s anselmo restarted taking his Mental health medications with no side effects. Pt states sees therapist and psychiatrist at [facility]. Pt denies pain at this time. Pt states healthy diet and physical activities. HPI performed by: Eloisa PENA, September 15, 2019 4:10 PMTransitions of Care InboundProblem ReviewProblem List was reviewed and/or updated during this visit.Medication Reconciliation & ReviewMedication List was reviewed and/or updated during this visit, including review of any ttcz-xve-rfbfimq medications, herbal therapies, and/or supplements.Allergy ReviewAllergy List was reviewed and/or updated during this visit.Adult Preventive CareLabs/Meds/Other Counseling- Nutrition and Physical Activity:BMI Interpretation: Healthy Weight (09/15/2019) Counseling: Done (09/15/2019) Physical Activity: Done (09/15/2019)Review of Systems General: Denies loss of appetite, chills, dizziness, fatigue, fever, continued fever, headache, feeling ill, sweats, night sweats, sleep disturbances, weight loss. Eyes: Denies blurring of vision, double vision, irritation, discharge, vision loss, eye pain, eye swelling, droopy eyelid, sensitivity to light, redness, itching. Ears/Nose/Throat: Denies earache, ear discharge, ringing in ears, decreased hearing, nasal congestion, nosebleeds, runny nose, sore throat, hoarseness, difficulty swallowing, dry mouth, tooth pain, bleeding gums, swollen glands. Cardiovascular: Denies chest pain, palpitations, feeling faint, trouble breathing w/exertion, SOB upon lying down, SOB at night, peripheral edema, elevated blood pressure, decreased heart rate. Respiratory: Denies cough, difficulty breathing, shortness of breath, excessive sputum, coughing up blood, wheezing, chest pain. Gastrointestinal: Denies nausea, vomiting, bleeding, burning, itching, irritation, cramps, diarrhea, constipation. Genitourinary: Denies urinary incontinence, pain with urination, burning with urination, urinary frequency, urinary hesitancy, urinary urgency, urinary urgency at night, incomplete emptying, blood in urine. Musculoskeletal: Denies back pain, joint pain, leg pain, other pain-see comments, joint swelling, body aches, muscle aches, muscle cramps, muscle weakness, stiffness, recent injury. Skin: Denies rash, hives, redness, itching, dryness, nail changes, suspicious lesions, athlete's foot, rash on palms, rash on bottom of feet. Neurologic: Denies muscle impairment, weakness, numbness/tingling, seizures, slurred speech, feeling faint, tremors, vertigo, paralysis on one side, paralysis on both sides. Psychiatric: Denies depression, anxiety, memory loss, mental disturbance, suicidal ideation, homicidal ideation, hallucinations, paranoia, feeling stressed, hearing voices. Endocrine: Denies cold intolerance, heat intolerance, excessive thirst, excessive hunger, excessive urination, weight loss, weight gain. Physical ExamGeneral Appearance: well nourished, well hydrated, no acute distressEyes, External: conjunctivae and lids normal, EOMIRespiratory, Auscultation: clear to auscultation bilaterally; no rales, rhonchi, or wheezesRespiratory, Effort: no intercostal retractions or use of accessory musclesCardiovascular, Auscultation: S1, S2 audible; no murmur, ru b, or gallop; RRRPeripheral Circulation: no clubbing, cyanosis, edema, or varicositiesAbdomen: soft, non-tender, no masses, bowel sounds normalGait & Station: normalSkin, Inspection: no rashes, lesions, or ulcerationsOrientation: oriented to time, place, and personMood & Affect: no depression, anxiety, or agitationJudgment & Insight: seems intactCare Management Plan Transitions of CareInboundRate Your HealthIn general, would you say your health is? ExcellentAssessment & Plan Problems:Added: Person consulting for explanation of examination or test findings (ICD-V65.8) (CAP37-P35.2) Assessment: Instructions: We have reviewed your lab results with you today. Your lab results are unremarkable. Please continue medications as prescribed. Please continue healthy diet and physical activities. Please try to maintain adequate intake of water daily.Assessed:Nicotine dependence, unspecified, uncomplicated (ICD10- F17.200) Assessment: Pt states still struggling with smoking cessation. using patches. only smokes occaisionally Instructions: Please continue to try to quit smoking cigarettesNoncompliance with medication regimen (ICD-V15.81) (MIR73-N73.14) Assessment: pt states taking medications as prescribed.ANXIETY DISORDER, GENERALIZED (ICD-300.02) (CHM66-L14.1) Assessment: Pt states seeing mental health providers and receiving medications for mental health at [facility] Instructions: Please continue medications as prescribed. Please continue to follow with your Mental Health Providers at [facility].Health Screening (ICD-V70.0) (GKU22-G96.9) Assessment: Instructions: Lab results reviewed with you today.Patient Instructions/Care Plan: Nicotine dependence- unspecified- uncomplicated: Please continue to try to quit smoking cigarettesANXIETY DISORDER- GENERALIZED: Please continue medications as prescribed. Please continue to follow with your Mental Health Providers at [facility].Person consulting for explanation of examination or test findings: We have reviewed your lab results with you today. Your lab results are unremarkable. Please continue medications as prescribed. Please continue healthy diet and physical activities. Please try to maintain adequate intake of water daily.Health Screening: Lab results reviewed with you today. Plan developed in collaboration with patient and/or familyMedications:CVS WEEKLY PILL PLANNERONDANSETRON HCL 4 MG ORAL TABLETCLONIDINE HCL 0.1 MG ORAL TABLETLITHIUM CARBONATE 150 MG ORAL CAPSULEOMEPRAZOLE 20 MG ORAL CAPSULE DELAYED RELEASENICOTINE 21 MG/24HR TRANSDERMAL PATCH 24 HOURAllergies:No Known Allergies (updated 08/18/2019) Orders:Adult - Ofc Vst, EST, Level III [CPT- 72512] Follow-Up Return to clinic: 3 months for follow up Plan Comments: will f/u for anxiety depressionClinical Visit Summary Completed Name Value Range Interpretation Code Description Data Kaylee rce(s) Supporting Document(s) ID Date Data Source [id number] 09/08/2019 10:50:47 AM EDT [facility] Labs In-House Blood TestsDate/Time Colle cted: September 08, 2019 10:51 AMTest Result Reference Range Normal ValueComments: blood draw done in office done in the right ac tolerated well Lucio Beaver MA, September 08, 2019 10:51 AMAssessment & Plan Orders:[id number] Vst-Est Level I [CPT-38992] 36508 - Venipuncture [CPT-82973] Name Value Range Interpretation Code Description Data Kaylee rce(s) Supporting Document(s) ID Date Data Source [id number] 09/08/2019 10:50:00 AM EDT [facility] Name Value Range Interpretation Code Description Data Kaylee rce(s) Supporting Document(s) VIT D25 TOT 19.9 ng/mL 30.0-100.0 L [facility] BG FASTING 82 mg/dL 70-100 N [facility] y Health T4, FREE 1.35 ng/dL 0.78-1.33 H [facility] Health TSH 0.515 microintl units/mL 0.463-3.98 N [facility] ID Date Data Source [id number] 09/08/2019 10:50:00 AM EDT [facility] Name Value Range Interpretation Code Description Data Kaylee rce(s) Supporting Document(s) HCT 43.4 % 42.0-52.0 N [facility] HGB 15.3 g/dL 13.5-17.5 N [facility] MCH 35.3 G/DL pg 32.0-36.5 N [facility] MCHC 31.2 PG % 27.0-33.0 [facility] PLATELETS 310 10 10*3/mm3 150-450 N [facility] RBC 4.91 10 10*6/mm3 4.30-6.10 [facility] RDW 12.5 % 11.5-14.5 N [facility] WBC TOTAL 7.1 4.0-10.0 N [facility] ID Date Data Source [id number] 08/18/2019 02:44:00 PM EDT [facility] Measurements & CalculationsHeight: 66 inches 167.64 cm 10 %ileWeight: 132 pounds 6 oz. 60.17 kg 16 %ileBody Mass Index (BMI): 21.44 32 %tileBMI Interpretation: Healthy WeightBody Surface Area (BSA): 1.68Weight Management Education Done (Nutrition/Physical Activity)Vital SignsTemperature: 98.3FPulse Rate: 90 beats/minuteRespiratory Rate: 15 respirations/minuteBlood Pressure: 117/71 O2 Saturation: 96% Vital Signs performed by: Linda Chavez LPN, August 18, 2019 2:46 PMVital Signs performed by: Linda Chavez LPN, August 18, 2019 2:46 PMInitial Intake Information From: patientRoom #: 14Infectious Disease / Travel ScreeningRecent travel for you or any close contacts? NoHave you had any close contact with anyone diagnosed with or under investigation for COVID-19 (coronavirus)? NoFever? NoRespiratory symptoms: cough, cold, congestion, shortness of breath, difficulty breathing? NoLoss of smell? NoLoss of taste? NoSmoking, Tobacco, Vaping or Smoke Exposure StatusSmoke Status: former smokerTobacco Use: NoDo you vape? NoPassive Smoke Exposure: NoHealthcare HistorySince your last office visit...Have you been admitted to the hospital? NoHave you been to an emergency room (ER) or urgent care clinic? NoHave you seen another healthcare provider? Yes [facility]Have you seen a dentist? YesRa te Your HealthIn general, would you say your health is? ExcellentPain AssessmentAre you currently having any pain which... You would like your provider to address? No Affects your activity level? NoDepression Screening - PHQ-2Over the last two weeks, have you... Had little interest or pleasure in doing things? Nearly every day Been feeling down, depressed, or hopeless? Nearly every day PHQ-2 Score: 6Anxiety Screening - ALYSHA-2Over the last two weeks, have you been... Feeling nervous, anxious, or on edge? Nearly every day Unable to stop or control worrying? Nearly every day ALYSHA-2 Score: 6Generalized Anxiety Disorder 7-Item Screening (ALYSHA-7)Answer Guide:0 = Not at all1 = Several days2 = Over half the days3 = Nearly every dayOver the last 2 weeks, how often have you been bothered by the following problems?Feeling nervous, anxious, or on edge: 3Not being able to stop or control worryinWorrying too much about different things: 3Trouble relaxinBeing so restless that it's hard to sit still: 3Becoming easily annoyed or irritable: 3Feeling afraid as if something awful might happen: 3Answer Guide:0 = Not difficult at all1 = Somewhat difficult2 = Very difficult3 = Extremely difficultHow difficult have these made it for you to do your work, take care of things at home, or get along with other people? 1GAD-7 Screening Results ALYSHA-2 Score: 6GAD-7 Score: 20Functional Impairment: Somewhat difficultRecommendation: Severe anxietyPHQ-9 1. Over the last 2 weeks, patient reports the following frequency of symptoms: a. Little interest or pleasure in doing things -Nearly every day b. Feeling down, depressed, or hopeless -Nearly every day c. Trouble falling asleep, staying asleep, or sleeping too much -Nearly every day d. Feeling tired or having little energy -Nearly every day e. Poor appetite or overeating -Nearly every day f. Feeling bad about yourself, feeling that you are a failure, or feeling that you have let yourself or your family down -Nearly every day g. Trouble concentrating on things such as reading the newspaper or watching television -Nearly every day h. Moving or speaking so slowly that other people could have noticed. Or being so fidgety or restless that you have been moving around a lot more than usual - More than half the days i. Thinking that you would be better off or that you want to hurt yourself in some way -Not at all2. If you checked off any problems, how difficult have these problems made it for you to do your work, take care of things at home, or get along with other people? -Extremely DifficultToday's PHQ-9 Results Score: 23 Severity: Severe Diagnosis Recommendation: Major Depression Functional Impairment: Extremely DifficultToday's Follow-Up Action Depression follow-up done. Follow-Up Action: telepsych referral pac e for second opinionScreening, Brief Intervention, & Referral to Treatment (SBIRT)Pre-Screening Questions How many times have you have 5 or more drinks in a day? 0How many times have you used an illegal drug or used a prescription medication for a non-medical reason? 365Performed by: Linda Chavez LPN, August 18, 2019 2:52 PMPatient History Medical History:Hx of clonidine and lithium hx of Psychiatry . Diagnosed with Bipolar disorder in 2016Surgical History:No known surgical historyFamily History:No known family historySocial/Personal History:Belen Russo lives in his own home with a friendcarthage high 11thprice chopper carthageSexual orientation: Miller. Sexually Active: Yes. Chief Complaintmed follow up room 14History of Present Illness (HPI)19 YO male here for follw up on meds , Pt states seen by [facility] in [facility] for his mental health. Pt states have been treated bipolar depression, pt states dont believe that he is bipolar because the meds that he was given haventbeen working for him. pt states have been on meds for about three months [place] states things started getting worst when he was started on ondansertron. Pt is requesting referral to telepsych to have a second opion on his med management and phych diagnosis. Pt states would like a copy of immunization records sent to school also copy of physical.Pt states was [place] child in the childrens home. Pt states now in more stable environment. Pt states receives assistance from DSS. Pt states increase back pain. Patient states feels scoliosis is getting worst. HPI performed by: Eloisa PENA, August 18, 2019 3:44 PMTransitions of Care InboundProblem ReviewProblem List was reviewed and/or updated during this visit.Medication Reconciliation & ReviewMedication List was reviewed and/or updated during this visit, including review of any toap-oyd-qrwqnhg medications, herbal therapies, and/or supplements.Allergy ReviewAllergy List was reviewed and/or updated during this visit. Patient has no known allergies.Adult Preventive CareProvider Calculated and Reviewed all Clinical Protocols for patient today. Labs/Meds/Other Counseling-Nutrition and Physical Activity:BMI Interpretation: Healthy Weight (08/18/2019) Counseling: Done (08/18/2019) Physical Activity: Done (08/18/2019)Review of Systems General: Complains of sleep disturbances. Denies loss of appetite, chills, dizziness, fatigue, fever, continued fever, headache, feeling ill, sweats, night sweats, weight loss. Eyes: Denies blurring of vision, double vision, irritation, discharge, vision loss, eye pain, eye swelling, droopy eyelid, sensitivity to light, redness, itching. Ears/Nose/Throat: Denies earache, ear discharge, ringing in ears, decreased hearing, nasal congestion, nosebleeds, runny nose, sore throat, hoarseness, difficulty swallowing, dry mouth, tooth pain, bleeding gums, swollen glands. Cardiovascular: Denies chest pain, palpitations, feeling faint, trouble breathing w/exertion, SOB upon lying down, SOB at night, peripheral edema, elevated blood pressure, decreased heart rate. Respiratory: Denies cough, difficulty breathing, shortness of breath, excessive sputum, coughing up blood, wheezing, chest pain. Gastrointestinal: Denies n ausea, vomiting, bleeding, burning, itching, irritation, cramps, diarrhea, constipation. Genitourinary: Denies urinary incontinence, pain with urination, burning with urination, urinary frequency, urinary hesitancy, urinary urgency, urinary urgency at night, incomplete emptying, blood in urine. Musculoskeletal: Complains of back pain, muscle aches. Denies joint pain, leg pain, other pain- see comments, joint swelling, body aches, muscle cramps, muscle weakness, stiffness, recent injury. Skin: Denies rash, hives, redness, itching, dryness, nail changes, suspicious lesions, athlete's foot, rash on palms, rash on bottom of feet. Neurologic: Denies muscle impairment, weakness, numbness/tingling, seizures, slurred speech, feeling faint, tremors, vertigo, paralysis on one side, paralysis on both sides. Psychiatric: Complains of anxiety. Denies depression, memory loss, mental disturbance, suicidal ideation, homicidal ideation, hallucinations, paranoia, feeling stressed, hearing voices. Endocrine : Denies cold intolerance, heat intolerance, excessive thirst, excessive hunger, excessive urination, weight loss, weight gain. Physical ExamGeneral Appearance: well nourished, well hydrated, no acute distressEyes, External: conjunctivae and lids normal, EOMIRespiratory, Auscultation: clear to auscultation bilaterally; no rales, rhonchi, or wheezesRespiratory, Effort: no intercostal retractions or use of accessory musclesCardiovascular, Auscultation: S1, S2 audible; no murmur, rub, or gallop; RRRPeripheral Circulation: no clubbing, cyanosis, edema, or varicositiesAbdomen: soft, non-tender, no masses, bowel sounds normalGait & Station: normalSkin, Inspection: no rashes, lesions, or ulcerationsOrientation: oriented to time, place, and personMood & Affect: appears calmJudgment & Insight: need further assessmentCare Management Plan Transitions of CareInboundRate Your HealthIn general, would you say your health is? ExcellentAssessment & Plan Problems:Added: Chronic back pain (ICD-724.5) (ICD10- M54.9) Assessment: Instructions: We have ordered an exray to assess for scoliosis. We will contact you if results are concerning. may continue mild to moderate strenghtening exercises. May take oTC tylenol or ibuprofen as needed for pain. May take warm baths or showers to relax muscles.Nicotine dependence, unspecified, uncomplicated (RZH93-P84.200) Assessment: Instructions: Please continue to avoid smoking cigarettes. Please do not smoke cigarettes while using nicotine patches.Encounter for general adult medical examination with abnormal findings (ICD-V70.0) (CMD20-P44.01) Assessment: Instructions: You have had your a physical exanm done today. Please continue medications as prescribed. Please continue lifestyle changes to include healthy diet and physical activities. Please try to maintain adequate rest, good nutrition and adequate fluid intakeHealth Screening (ICD-V70.0) (JDN88-P87.9) Assessment: Instructions: Fasting labs ordered for you today. Please return to have labs drawn please fast for 8-10 hours prior to having labs drawn.Nicotine dependence, unspecified, uncomplicated (ZRD52-T54.200) Assessment: Pt states still trying to quit smoking. Pt states up Was up to 1 pack cigarettes daily. Pt states have cut back significantly but still gets cravings. requesting refill of nicotine patchesAssessed:ANXIETY DISORDER, GENERALIZED (ICD-300.02) (ZWU07-I47.1) Assessment: Pt states stopped taking his psych medications about 4 days ago because he did not like the way they made him feel. Pt requesting referral to telepsych for second opinion. Pt encouraged to continue medications as prescribed. Pt instructed to contact present mental health provider to discuss medications effects and side effects. Instructions: We have made referral for you today. We will contact you to set this up. Please continue medicatuions as prescribed by your mental health provider. Please contactact your present mental health provider to discuss medication effects and side effects.please continue medicationMood disorder (ICD-296.90) (MMM44-G79) Assessment: Instructions: Please continue medications as prescribed.Patient Instructions/Care Plan: Chronic back pain: We have ordered an exray to assess for scoliosis. We will contact you if results are concerning. may continue mild to moderate strenghtening exercises. May take oTC tylenol or ibuprofen as needed for pain. May take warm baths or showers to relax muscles.Nicotine dependence- unspecified- uncomplicated: Please continue to avoid smoking cigarettes. Please do not smoke cigarettes while using nicotine patches.ANXIETY DISORDER- GENERALIZED: We have made referral for you today. We will contact you to set this up. Please continue medicatuions as prescribed by your mental health provider. Please contactact your present mental health provider to discuss medication effects and side effects.please continue medicationEncounter for general adult medical examination with abnormal findings: You have had your a physical exanm done today. Please continue medications as prescribed. Please continue lifestyle changes to include healthy diet and physical activities. Please try to maintain adequate rest, good nutrition and adequate fluid intakeHealth Screening: Fasting labs ordered for you today. Please return to have labs drawn please fast for 8-10 hours prior to having labs drawn.Mood disorder: Please continue medications as prescribed. Plan developed in collaboration with patient and/or familyMedications:CVS WEEKLY PILL PLANNERONDANSETRON HCL 4 MG ORAL TABLETCLONIDINE HCL 0.1 MG ORAL TABLETLITHIUM CARBONATE 150 MG ORAL CAPSULEOMEPRAZOLE 20 MG ORAL CAPSULE DELAYED RELEASENICOTINE 21 MG/24HR TRANSDERMAL PATCH 24 HOURMedication Changes:Refilled:NICOTINE 21 MG/24HR TRANSDERMAL PATCH 24 HOUR-1 patch daily for tobacco Qty: 30[Patch] Refills: 2 Method: ElectronicChanged:From: TRANSDERMAL NICOTINE 21 MG/24HR TRANSDERMAL PATCH 24 HOUR Qty: [id number] Refills: 30[Patch] To: NICOTINE 21 MG/24HR TRANSDERMAL PATCH 24 HOUR-1 patch daily for tobacco Qty: 30[Patch] Refills: 2Allergies:No Known Allergies (updated 08/18/2019) Orders:Scoliosis Series [CPT-12231] COMP METABOLIC PANEL [CPT- 39368] CBC W/DIFF [CPT-39237] LIPID PANEL [CPT-48253] TSH [CPT-21538] T-4 free [CPT-05837] Vitamin D 250H Unspecified [CPT-86961] Telepsychiatry Consult [CPT- 91653] Adult - Ofc Vst, EST, Level IV [CPT-35515] Follow-Up Return to clinic: as scheduled and as needed. Clinical Visit Summary CompletedMedications:NICOTINE 21 MG/24HR TRANSDERMAL PATCH 24 HOUR (NICOTINE) 1 patch daily for tobacco #30[Patch] x 2 Route:TRANSDERMAL Entered and Authorized by: Eloisa PENA Method used: Electronically to [facility] (retail) [address] [place] [address] Note to Pharmacy: Route: TRANSDERMAL; Indications: NICOTINE DEPENDENCE, UNSPECIFIED, UNCOMPLICATED RxID: [id number] signed by Eloisa PENA on 08/18/2019 at 5:11 PM Name Value Range Interpretation Code Description Data Kaylee rce(s) Supporting Document(s) ID Date Data Source [id number] 07/20/2019 08:24:00 PM EDT [facility] Name Value Range Interpretation Code Description Data Kaylee rce(s) Supporting Document(s) HCT 43.3 % 42.0-52.0 N [facility] HGB 14.8 g/dL 13.5-17.5 N [facility] MCH 34.2 G/DL pg 32.0-36.5 N [facility] MCHC 30.4 PG % 27.0-33.0 N [facility] PLATELETS 295 10 10*3/mm3 150-450 N [facility] RBC 4.87 10 10*6/mm3 4.30-6.10 N [facility] RDW 12.8 % 11.5-14.5 N [facility] WBC TOTAL 7.4 4.0-10.0 N [facility] ID Date Data Source [id number] 07/20/2019 08:24:00 PM EDT [facility] Name Value Range Interpretation Code Description Data Kaylee rce(s) Supporting Document(s) BG FASTING 98 mg/dL 70-100 N [facility] y Health ID Date Data Source [id number] 07/20/2019 01:52:54 PM EDT [facility] Measurements & CalculationsHeight: 66 inches (5 ft. 6 in.) 167.64 cm 10 %ileWeight: 139 pounds 63.18 kg 26 %ileBody Mass Index (BMI): 22.52 47 %tileBMI Interpretation: Healthy WeightBody Surface Area (BSA): 1.72Weight Management Education Done (Nutrition/Physical Activity)Vital SignsTemperature: 96.9F tympanic Pulse Rate: 81 beats/minuteRespiratory Rate: 18 respirations/minuteBlood Pressure: 112/73 right arm sitting automaticO2 Saturation: 98% room airVital Signs performed by: Anni Sen LPN, July 20, 2019 2:12 PMInitial Intake Information from: patientRoom #: 2Smoking, Tobacco, Vaping or Smoke Exposure StatusSmoke Status: current every day smokerTobacco Use: YesAdv to Quit: YesDo you vape? NoPassive Smoke Exposure: YesHealthcare HistorySince your last office visit...Have you been admitted to the hospital? NoHave you been to an emergency room (ER) or urgent care clinic? Yes - [facility] ER gi issuesHave you seen another healthcare provider? Yes - [facility], [facility] NrcilHave you seen a dentist? Yes - NCFHDRate Your HealthIn general, would you say your health is? ExcellentPain AssessmentAre you currently having any pain which... You would like your provider to address? No Affects your activity level? NoDepression Screening - PHQ-2Over the last two weeks, have you... Had little interest or pleasure in doing things? Not at all Been feeling down, depressed, or hopeless? Not at all PHQ-2 Score: 0Anxiety Screening - ALYSHA-2Over the last two weeks, have you been... Feeling nervous, anxious, or on edge? Not at all Unable to stop or control worrying? Not at all ALYSHA-2 Score: 0Infectious Disease / Travel ScreeningRecent travel for you or any close contacts? NoHave you had any close contact with anyone diagnosed with or under investigation for COVID-19 (coronavirus)? NoHave you had any of the following symptoms recently? Fever? NoRespiratory symptoms: cough, cold, congestion, shortness of breath, difficulty breathing? NoScreening, Brief Intervention, & Referral to Treatment (SBIRT)Pre- Screening Questions How many times have you have 5 or more drinks in a day? 0How many times have you used an illegal drug or used a prescription medication for a non-medical reason? 365Performed by: Anni Sen LPN, July 20, 2019 2:08 PMPatient History Medical History:Hx of clonidine and lithium hx of Psychiatry . Diagnosed with Bipolar disorder in 2016Surgical History:No known surgical historyFamily History:No known family historySocial/Personal History:Belen Russo lives in his own home with a friendcarthage high 11[facility] carthaYuma Regional Medical Centerexual orientation: Miller. Sexually Active: Yes. Advised to Quit/Tobacco Education: YesChief Complaint2 [facility] ([facility]PI)19 yo male here for f/u for ER visits for gastric upset. Pt states he was throwing up blood clots and getting anal cramps. Pt states he is on a very bland diet and that his symptoms have resolved. He is also taking omeprazole and zofran orally as prescribed, has sublingual zofran as well for as needed nausea. Pt's greater concern is his moods. Pt reports he saw Brigitte Hernandez on 07/03/2019, was switched from Venlafaxine and Olanzapine to [place] and Clonidine. Pt feels moods are much worse since the change, reports e xcessive anxiety and mood swings now. Had a phone visit 07/15/2019 and reports pt was advised to increase [place] to 650mg BID, but states med was never sent. Pt states his life has settled and he feels that his moods should be better; is no longer homeless, has an apt by DSS, is thrilled about that. Spoke with nurse Sakshi at [facility] today with Cedrick in my office. She confirms the dates as above and that Brigitte is off today but will be working tomorrow. Sakshi states on 07/15/2019 Lexapro was added (but it wasn't sent in, that was an error and will be sent tomorrow), the clonidine continued at the same dose and the [place] is supposed to be 150mg in the AM and 300mg in the PM. No recent lithium levels. HPI performed by: Karuna PARKER, July 20, 2019 2:21 PMTransitions of Care InboundProblem ReviewProblem List was reviewed and/or updated during this visit.Medication Reconciliation & ReviewMedication List was reviewed and/or updated during this visit, including review of any [id number] medications, herbal therapies, and/or supplements.Allergy ReviewAllergy List was reviewed and/or updated during this visit. Patient has no known allergies.Adult Preventive CareProvider Calculated and Reviewed all Clinical Protocols for patient today. Screening Tobacco Screening: Smoking Status: current every day smoker (07/20/2019) Tobacco Use: Currently (07/20/2019) Advised to Quit: Yes ( 07/20/2019)Labs/Meds/Other Counseling-Nutrition and Physical Activity:BMI Interpretation: Healthy Weight (07/20/2019) Counseling: Done (07/20/2019) Physical Activity: Done (07/20/2019)Review of Systems General: Denies chills, dizziness, fatigue, fever, headache, feeling ill. Cardiovascular: Denies chest pain, palpitations, feeling faint. Respiratory: Denies cough, difficulty breathing, shortness of breath. Gastrointestinal: Complains of nausea. Denies vomiting, cramps, diarrhea, bloody diarrhea, constipation, pain or discomfort, blood in stool, black or tarry stools. Genitourinary: Denies pain with urination, burning with urination, urinary frequency, blood in urine. Psychiatric: Complains of see HPI, mental disturbance, feeling stressed. Denies memory loss, suicidal ideation, homicidal ideation, hallucinations, paranoia. Physical ExamGeneral Appearance: well nourished, well hydrated, no acute distress, clothing and hair is unkeptEyes, External: conjunctivae and lids normal, EOMIRespiratory, Auscultation: clear to auscultation bilaterally; no rales, rhonchi, or wheezesCardiovascular, Auscultation: S1, S2 audible; no murmur, rub, or gallop; RRRAbdomen: soft, non-tender, no masses, bowel sounds normalGait & Station: normalOrientation: oriented to time, place, and personMood & Affect: anxious, appears slightly aggitated, poor eye contact, pressured speech with difficulty following one thought to the endJudgment & Insight: seems intactCare Management Plan Transitions of CareInboundRate Your HealthIn general, would you say your health is? ExcellentAssessment & Plan Probl ems:Added: [place] monitoring (ICD-V58.83) (IMR40-P24.81) Assessment: Instructions: Take [place] as prescribed, currently supposed to be taking the 150mg capsules: 1 capsule in the mornin and 2 capsules in the evening. Also take clonidine as prescribed. I have requested your prescriber at [facility] call you tomorrow to touch base on your moods. Please go to the hospital for any significant decline in your moods. Complete your blood work today as ordered.Abnormal liver function (ICD-573.9) (ADE75-T17.89) Assessment: Instructions: Recheck labs as ordered today.Assessed:Mood disorder (ICD-296.90) (TML07-F46) Assessment: Instructions: As above.Removed:Homelessness (ICD- V60.0) (BPB89-I26.0)Patient Instructions/Care Plan: [place] monitoring: Take [place] as prescribed, currently supposed to be taking the 150mg capsules: 1 capsule in the mornin and 2 capsules in the evening. Also take clonidine as prescribed. I have requested your prescriber at [facility] call you tomorrow to touch base on your moods. Please go to the hospital for any significant decline in your moods. Complete your blood work today as ordered.Abnormal liver function: Recheck labs as ordered today.Mood disorder: As above. Plan developed in collaboration with patient and/or familyMedications:ONDANSETRON HCL 4 MG ORAL TABLETCLONIDINE HCL 0.1 MG ORAL TABLETLITHIUM CARBONATE 150 MG ORAL CAPSULEOMEPRAZOLE 20 MG ORAL CAPSULE DELAYED RELEASENICOTINE 21 MG/24HR TRANSDERMAL PATCH 24 HOURMedication Changes:Added: OMEPRAZOLE 20 MG ORAL CAPSULE DELAYED RELEASE-1 tab po bidLITHIUM CARBONATE 150 MG ORAL CAPSULE-1 tab po bi dCLONIDINE HCL 0.1 MG ORAL TABLET-1 tab po dailyONDANSETRON HCL 4 MG ORAL TABLET-1 tab po [id number]:VENLAFAXINE HCL 37.5 MG ORAL TABLET-1 tab po daily Qty: 30[Tablet] Refills: 0, OLANZAPINE 5 MG ORAL TABLET-1 tab po daily at bedtime Qty: 30[Tablet] Refills: 0Allergies:No Known Allergies (updated 07/20/2019) Orders:COMP METABOLIC PANEL [CPT-05138] CBC W/DIFF [CPT-13768] [place] [50271] Urine Drug Screen w/ Confirmation [CPT-06086] Adult - Ofc Vst, EST, Level III [CPT-55454] Follow-Up Return to clinic: in 4 weeks for follow upAdditional Follow-Up: GI follow-upClinical Visit Summary CompletedElectroni cliff signed by Karuna PARKER on 07/22/2019 at 2:26 PM Name Value Range Interpretation Code Description Data Kaylee rce(s) Supporting Document(s) ID Date Data Source [id number] 06/18/2019 10:01:06 AM EST [facility] Measurements & CalculationsHeight: 66 inches (5 ft. 6 in.) 167.64 cm 10 %ileWeight: 133 pounds 60.45 kg 17 %ileBody Mass Index (BMI): 21.54 34 %tileBMI Interpretation: Healthy WeightBody Surface Area (BSA): 1.68Weight Management Education Done (Nutrition/Physical Activity)Vital SignsTemperature: 98.3FPulse Rate: 94 beats/minuteRespiratory Rate: 16 respirations/minuteBlood Pressure: 129/70 right arm sitting automaticO2 Saturation: 97% room airVital Signs performed by: Anni Sen LPN, June 18, 2019 10:13 AMVital Signs performed by: Karuna PARKER, June 18, 2019 10:18 AMInitial Intake Information from: patientRoom #: 9Smoking, Tobacco, Vaping or Smoke Exposure StatusSmoke Status: current every day smokerTobacco Use: YesAdv to Quit: YesDo you vape? NoPassive Smoke Exposure: YesHealthcare HistorySince your last office visit...Have you [facility]: [facility]Have you been to an emergency room (ER) or urgent care clinic? NoHave you seen another healthcare provider? Yes - [facility], [facility] , [facility]Have you seen a dentist? NoRate Your HealthIn general, would you say your health is? ExcellentPain AssessmentAre you currently having any pain which... You would like your provider to address? No Affects your activity level? NoDepression Screening - PHQ-2Over the last two weeks, have you... Had little interest or pleasure in doing things? Not at all Been feeling down, depressed, or hopeless? Not at all PHQ-2 Score: 0Anxiety Screening - ALYSHA-2Over the last two weeks, have you been... Feeling nervous, anxious, or on edge? Not at all Unable to stop or control worrying? Not at all ALYSHA-2 Score: 0Infectious Disease / Travel ScreeningRecent travel for you, your family, and/or any sexual partners? NoScreening, Brief Intervention, & Referral to Treatment (SBIRT)Pre-Screening Questions How many times have you have 5 or more drinks in a day? 0How many times have you used an illegal drug or used a prescription medication for a non-medical reason? 365Performed by: Anni Sen LPN, June 18, 2019 10:07 AMPatient History Medical History:Hx of clonidine and lithium hx of Psychiatry . Diagnosed with Bipolar disorder in 2016Surgical History:No known surgical historyFamily History:No known family historySocial/Personal History:Belen Russo lives in his own home with a friendcarthage high 11thprice chopper carthageSexual orientation: Miller. Sexually Active: Yes. Advised to Quit/Tobacco Education: YesChief Complaint mental health, letter for apartHistory of Present Illness (HPI)19 yo male here for follow-up for for mental health. Pt states medications are not helping with all of his symptoms. Pt reports ongoing panic attacks and anxiety. Pt states he can only show empathy and happiness but it seems fake. Pt states he is unable to show anger or cry. Pt states he is unable to drive due to his meds causing him to shake.Pt reports he is transgender male to female, now would like to initiate medications and be referred to as she. Pt is requesting a letter for a two bedroom appt. Pt currently staying at [facility], but pt states they are trying to get him more permanent placement. States the two bedrooms are all that are available. Pt reports bed bugs in the [facility] and is uncomfortable with the current living conditions. Currently set to graduate high school in September 2020, was in foster care and is now living on his own with no support system in place. Pt states works with and [facility] [employer] and [employer]. Pt had to reschedule today's [facility] hospital discharge appt due to weather and the prescriber being unavailable today, states [facility] is reschedulling with next available prescriber. Sees Vicente Daniels for counseling next week. HPI performed by: Karuna PARKER, June 18, 2019 10:19 AMTransitions of Care InboundProblem ReviewProblem List was reviewed and/or updated during this visit.Medication Reconciliation & ReviewMedication List was reviewed and/or updated during this visit, including review of any [id number] medications, herbal therapies, and/or supplements.Allergy ReviewAllergy List was reviewed and/or updated during this visit. Patient has no known allergies.Adult Preventive CareProvider Calculated and Reviewed all Clinical Protocols for patient today. Screening Tobacco Screening: Smoking Status: current every day smoker (06/18/2019) Tobacco Use: Currently (06/18/2019) Advised to Quit: Yes (06/18/2019)Labs/Meds/Other Counseling-Nutrition and Physical Activity:BMI Interpretation: Healthy Weight (06/18/2019) Counseling: Done (06/18/2019) Physical Activity: Done (06/18/2019)Review of Systems General: Denies chills, di zziness, fatigue, fever, headache, feeling ill. Cardiovascular: Denies chest pain, palpitations, feeling faint. Respiratory: Denies cough, difficulty breathing, shortness of breath. Gastrointestinal: Denies nausea, vomiting, diarrhea, pain or discomfort. Neurologic: Denies weakness, feeling faint. Psychiatric: Complains of anxiety, feeling stressed. Denies depression, suicidal ideation, homicidal ideation, hallucinations, paranoia. Physical ExamGeneral Appearance: well nourished, well hydrated, no acute distress, well keptEyes, External: conjunctivae and lids normal, EOMIRespiratory, Auscultation: clear to auscultation bilaterally; no rales, rhonchi, or wheezesRespiratory, Effort: no intercostal retractions or use of accessory musclesCardiovascular, Auscultation: S1, S2 audible; no murmur, rub, or gallop; RRRPeripheral Circulation: no clubbing, cyanosis, edema, or varicositiesAbdomen: soft, non- tender, no masses, bowel sounds normalGait & Station: normalOrientation: oriented to time, place, and personMood & Affect: no depression, anxiety, or agitationJudgment & Insight: intactCare Management Plan Transitions of CareInboundRate Your HealthIn general, would you say your health is? ExcellentAssessment & Plan Problems:Added: BMI 21.0-21.9 (ICD-V85.1) (ICD10- Z68.21)Homelessness (ICD-V60.0) (SRH34-L05.0) Assessment: Instructions: Letter of recommendation given for permanent housing. Also coordinated with Apryl Pulido here to be in touch with you.Assessed:Mood disorder (ICD-296.90) (NKA70-J39) Assessment: Instructions: Continue per [facility]. Refills sent for your medications due to today's appt being cancelled.Trying to give up smoking (IHV56-V98.0) Assessment: Instructions: Quit as you have planned.Vaccination (ICD-V05.9) (SUF47-O29) Assessment: Instructions: Final Gardisil vaccine given today per your request and you are due. No further HPV vaccine necessary.Patient Instructions/Care Plan: Mood disorder: Continue per [facility]. Refills sent for your medications due to today's appt being cancelled.Homelessness: Letter of recommendation given for permanent housing. Also coordinated with Apryl Pulido here to be in touch with you.Trying to give up smoking: Quit as you have planned.Vaccination: Final Gardisil vaccine given today per your request and you are due. No further HPV vaccine necessary. Plan developed in collaboration with patient and/or familyMedications:VENLAFAXINE HCL 37.5 MG ORAL TABLETOLANZAPINE 5 MG ORAL TABLETNICOTINE 21 MG/24HR TRANSDERMAL PATCH 24 HOURMedication Changes:Added: NICOTINE 21 MG/24HR TRANSDERMAL PATCH 24 HOUR-1 patch daily for tobaccoVENLAFAXINE HCL 37.5 MG ORAL TABLET-1 tab po daily for ood for 7 daysRefilled:OLANZAPINE 5 MG ORAL TABLET-1 tab po daily at bedtime Qty: 30[Tablet] Refills: 0 Method: ElectronicNew Prescription:VENLAFAXINE HCL 37.5 MG ORAL TABLET-1 tab po daily Qty: 30[Tablet] Refills: 0 Method: ElectronicChanged: To: VENLAFAXINE HCL 37.5 MG ORAL TABLET-1 tab po daily Qty: 30[Tablet] Refills: 0 To: OLANZAPINE 5 MG ORAL TABLET-1 tab po daily at bedtime Qty: 30[Tablet] Refills: 0Allergies:No Known Allergies (updated 06/18/2019) Orders:Gardasil 9 [CPT-59279] 56795 - Immo Admin (over 19 yrs), 1st Vaccine [CPT-22162] Adult - Ofc Vst, EST, Level III [CPT-27062] Follow-Up Return to clinic: as needed, 6 Weeks for follow upAdditional Follow-Up: transgender initial with KateClinical Visit Summary CompletedMedications:OLANZAPINE 5 MG ORAL TABLET (OLANZAPINE) 1 tab po daily at bedtime #30[Tablet] x 0 Entered and Authorized by: Karuna PARKER Method used: Electronically to [facility] (retail) [address] [place], [place] [id number] Note to Pharmacy: Route: ORAL; RxID: [id number] HCL 37.5 MG ORAL TABLET (VENLAFAXINE HCL) 1 tab po daily #30[Tablet] x 0 Entered and Authorized by: Karuna PARKER Method used: Electronically to [facility] (retail) [address] [place], [place] [id number] Note to Pharmacy: Route: ORAL; RxID: [id number]][Immunization Management]The patient was counseled by the physician on immunizations due, and on the risks and benefits of immunizations.Vaccines Administered/Entered:Vaccination Group: InfluenzaSeries: 2 NOT GIVENVaccination: Flucelvax Quadrivalent PF (4y+) Ad ultReason Not Given: received while in hospital stayEntered Date: 06/18/2019 12:00 AMEntered by: Anni Sen LPN Vaccination Group: Human PapillomavirusSeries: 3Vaccination: Gardasil 9 Intramuscular Suspension Prefilled SyringeMfr / Lot# / Exp.Date: [employer] / [id number] / 1Amt. Given / Route / Site: 0.5 mL / IM / Right DeltoidNDC / CVX: [id number] / 165Administered Date: 06/18/2019 10:51VFC Eligibility: Not VFC EligibleVIS Date: 02/18/2019VIS Given / VIS Given On: Yes / 06/18/2019Comments: Administered by: Anni Sen LPN Name Value Range Interpretation Code Description Data Kaylee rce(s) Supporting Document(s) Procedure Social History Code Duration Value Status Description Data Source(s ) Alcohol intake 01/23/2020 12:00:00 AM EDT Lifetime non-drinker (finding) completed Lifetime non-drinker (finding) [facility] ital Smoking 01/23/2020 12:00:00 AM EDT Current every day smoker co mpleted Current every day smoker [facility] Vital Signs ID Date Data Source UNK Name Value Range Interpretation Code Description Data Source(s) Body weight 2128 [oz_av] 2128 [oz_av] HONEY ([facility]) Body mass index (BMI) [Ratio] 21.5 kg/m2 21.5 k g/m2 HONEY ([facility]) Body height 66 [in_i] 66 [in_i] CONNELLY ([facility]) Body weight 2006.4 [oz_av] 2006.4 [oz_av] ATHEN A ([facility]) Systolic blood pressure 138 mm[Hg] 138 mm[Hg] A [facility] ([facility]) Body mass index (BMI) [Ratio] 20.31 kg/m2 20.31 kg/m2 HONEY ([facility]) Body height 66 [in_i] 66 [in_i] HONEY ([facility]) Diastolic blood pressure 82 mm[Hg] 82 mm[Hg] HONEY ([facility]) Body weight 2088 [oz_av] 2088 [oz_av] HONEY ([facility]) Systolic blood pressure 111 mm[Hg] 111 mm[Hg] A [facility] ([facility]) Body mass index (BMI) [Ratio] 21.14 kg/m2 21.14 kg/m2 HONEY ([facility]) Body height 66 [in_i] 66 [in_i] HONEY ([facility]) Diastolic blood pressure 75 mm[Hg] 75 mm[Hg] HONEY ([facility]) Body weight 2118.08 [oz_av] 2118.08 [oz_av] ATH JAY ([facility]) Systolic blood pressure 117 mm[Hg] 117 mm[Hg] A THENA ([facility]) Body mass index (BMI) [Ratio] 21.44 kg/m2 21.44 kg/m2 HONEY ([facility]) Body height 66 [in_i] 66 [in_i] HONEY ([facility]) Diastolic blood pressure 71 mm[Hg] 71 mm[Hg] HONEY ([facility]) Body weight 2224 [oz_av] 2224 [oz_av] HONEY ([facility]) Systolic blood pressure 112 mm[Hg] 112 mm[Hg] A THENA ([facility]) Body mass index (BMI) [Ratio] 22.52 kg/m2 22.52 kg/m2 HONEY ([facility]) Body height 66 [in_i] 66 [in_i] HONEY ([facility]) Diastolic blood pressure 73 mm[Hg] 73 mm[Hg] HONEY ([facility]) Diastolic blood pressure 79 mm[Hg] 79 mm[Hg] eCW1 ([facility]) Systolic blood pressure 131 mm[Hg] 131 mm[Hg] e CW1 ([facility]) Body temperature 98.2 [degF] 98.2 [degF] eCW1 ( [facility]) Respiratory rate 18 /min 18 /min eCW1 ([facility]) Heart rate 74 /min 74 /min eCW1 ([facility]) Body mass index (BMI) [Ratio] 23.69 kg/m2 23.69 kg/m2 eCW1 ([facility]) Body height 64 [in_us] 64 [in_us] eCW1 ([facility]) Body weight Measured 138 [lb_av] 138 [lb_av] eC W1 ([facility]) Body weight 2128 [oz_av] 2128 [oz_av] HONEY ([facility]) Systolic blood pressure 129 mm[Hg] 129 mm[Hg] A THENA ([facility]) Body mass index (BMI) [Ratio] 21.54 kg/m2 21.54 kg/m2 HONEY ([facility]) Body height 66 [in_i] 66 [in_i] HONEY ([facility]) Diastolic blood pressure 70 mm[Hg] 70 mm[Hg] HONEY ([facility]) ID Date Data Source [id number] 01/26/2020 02:45:29 PM EDT [facility] Name Value Range Interpretation Code Description Data Source(s) WEIGHT RECORDED 133.[address] [facility] TRANSFER FROM [facility] Patient Treatment Plan of Care Planned Activity Planned Date Details Description Data Source (s) Zofran ODT 4 MG 07/02/2019 12:00:00 AM EDT eCW1 ([facility]) olanzapine 10 MG Oral Tablet 03/22/2019 12:00:00 AM [facility] oxcarbazepine 150 MG Oral Tablet 03/22/2019 12:00:00 AM [facility] 24 HR venlafaxine 37.5 MG Extended Release Oral Capsule HONEY ([facility]) venlafaxine 37.5 MG Oral Tablet HONEY ([facility]) Prazosin 1 MG Oral Capsule A THENA ([facility]) oxcarbazepine 150 MG Oral Tablet HONEY ([facility]) Ondansetron 4 MG Oral Tablet HONEY ([facility]) Ondansetron 4 MG Disintegrating Oral Tablet HONEY ([facility]) Omeprazole 20 MG Delayed Release Oral Capsule HONEY ([facility]) olanzapine 5 MG Oral Tablet HONEY ([facility]) olanzapine 2.5 MG Oral Tablet HONEY ([facility]) olanzapine 10 MG Oral Tablet HONEY ([facility]) 24 HR Nicotine 0.875 MG/HR Transdermal Patch HONEY ([facility]) [place] Carbonate 150 MG Oral Capsule HONEY ([facility]) Hydroxyzine Hydrochloride 25 MG Oral Tablet HONEY ([facility]) Escitalopram 20 MG Oral Tablet HONEY ([facility]) Escitalopram 10 MG Oral Tablet HONEY ([facility]) Docusate Sodium 100 MG Oral Capsule [DOK] HONEY ([facility]) Clonidine Hydrochloride 0.2 MG Oral Tablet HONEY ([facility]) Clonidine Hydrochloride 0.1 MG Oral Tablet HONEY ([facility]) Azithromycin 500 MG Oral Tablet HONEY ([facility])
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
--- OUTSIDE RECORDS SUMMARY | 2020-06-12 02:08 | CCD ---
Author Author [facility] Organization [facility] Address Unknown Phone Unavailable Support Name Relationship Address Phone [facility] [place] [address] Unavailable [place] [address] SK* Next Of Kin [address] [place] [address] MARCELINO WALTON [place] [address] Joni Irving Next Of Kin Unknown Unavailable Eloisa Rg Next Of Kin [address] [place] [address] Karuna Milner Next Of Kin [address] [place] [address] ST Next Of Kin Unknown Unavailable Dominga Mcdonald Next Of Kin [address] [place] [address] THEODORE WHARTON Next Of Kin [address] [id number] STATED, NONE Next Of Kin Unknown Jordan Malloy MD Next Of Kin [address] [place] [address] ROBERTA MELCHOR Next Of Kin Unknown NO, ONE Next Of Kin Unknown JONI LEBLANC Next Of Kin [address] [place] [address] UE Next Of Kin Unknown Unavailable TONNY MARIE Next Of Kin [address] [place] [address] ELINA MORILLO Next Of Kin [address] [id number] [facility] Next Of Kin [address] [place] [address] [place] [id number] STEVE FALCON Next Of Kin [address] [place] [address] Sandy Rodriguez Next Of Kin [address] [place] [address] ANANYA HOU Next Of Kin [address] [place] [address] UN Next Of Kin Unknown Unavailable Rickey HOU Next Of Kin [address] [place] [address] SANDY ANTHONY Next Of Kin [address] [place] [address] CHILD Next Of Kin Unknown Unavailable SANDY WALTON Next Of Kin [address] [address] Care Team Providers Care Apparatus Operator Name Role Phone KAREN SEAMAN VENDING ROUTE SERVICER Unavailable Unavailable KAREN SEAMAN VENDING ROUTE SERVICER Unavailable Unavailable KAREN SEAMAN VENDING ROUTE SERVICER Unavailable Unavailable KAREN SEAMAN VENDING ROUTE SERVICER Unavailable Unavailable KAREN SEAMAN VENDING ROUTE SERVICER Unavailable Unavailable KAREN SEAMAN VENDING ROUTE SERVICER Unavailable Unavailable MELIZA, L TIMOTHY PA Unavailable [...] Unavailable HERNANDEZ, GUALBERTO Unavailable Unavailable Dominga Arthur SENIOR PRODUCTION SUPERVISOR SENIOR PRODUCTION SUPERVISOR Unavailable Unavailable Saroj Arthur SENIOR PRODUCTION SUPERVISOR-BC Unavailable Unavailable Jerson F Dominga SENIOR PRODUCTION SUPERVISOR-BC Unavailable Unavailable Jerson, F Dominga SENIOR PRODUCTION SUPERVISOR-BC Unavailable Unavailable Jerson, F Dominga SENIOR PRODUCTION SUPERVISOR-BC Unavailable Unavailable Jerson F Dominga SENIOR PRODUCTION SUPERVISOR-BC Unavailable Unavailable Arthur, F Dominga SENIOR PRODUCTION SUPERVISOR-BC Unavailable Unavailable Saroj Arthur Dominga SENIOR PRODUCTION SUPERVISOR-BC Unavailable Unavailable Arthur F Dominga SENIOR PRODUCTION SUPERVISOR-BC Unavailable Unavailable Arthur, F Dominga SENIOR PRODUCTION SUPERVISOR-BC Unavailable Unavailable Arthur, F Dominga SENIOR PRODUCTION SUPERVISOR-BC Unavailable Unavailable Arthur, F Dominga SENIOR PRODUCTION SUPERVISOR-BC Unavailable Unavailable Arthur, F Dominga SENIOR PRODUCTION SUPERVISOR-BC Unavailable Unavailable Arthur, F Dominga SENIOR PRODUCTION SUPERVISOR-BC Unavailable Unavailable Arthur, F Dominga SENIOR PRODUCTION SUPERVISOR-BC Unavailable Unavailable Arthur, F Dominga SENIOR PRODUCTION SUPERVISOR-BC Unavailable Unavailable Arthur, F Dominga SENIOR PRODUCTION SUPERVISOR-BC Unavailable Unavailable Arthur, F Dominga SENIOR PRODUCTION SUPERVISOR-BC Unavailable Unavailable Arthur, F Dominga SENIOR PRODUCTION SUPERVISOR-BC Unavailable Unavailable Arthur, F Dominga SENIOR PRODUCTION SUPERVISOR-BC Unavailable Unavailable Arthur, F Dominga SENIOR PRODUCTION SUPERVISOR-BC Unavailable Unavailable Arthur, F Dominga SENIOR PRODUCTION SUPERVISOR-BC Unavailable Unavailable Arthur, F Dominga SENIOR PRODUCTION SUPERVISOR-BC Unavailable Unavailable BUBBA, DOT BILLY PA-C Unavailable [...] MORA, RASHAD KARUNA RPA-C Unavailable Unavailable MORA, RASAHD KARUNA RPA-C Unavailable Unavailable MORA, RASHAD KARUNA [...] Unavailable ELIZABETH, EL Unavailable Unavailable DESJARLAIS, LISA VENDING ROUTE SERVICER Unavailable Unavailable DESJARLAIS, LISA VENDING ROUTE SERVICER Unavailable Unavailable DESJARLAIS, LISA VENDING ROUTE SERVICER Unavailable Unavailable DESJARLAIS, LISA VENDING ROUTE SERVICER Unavailable Unavailable DESJARLAIS, LISA VENDING ROUTE SERVICER Unavailable Unavailable DESJARLAIS, LISA VENDING ROUTE SERVICER Unavailable Unavailable DESJARLAIS, LISA VENDING ROUTE SERVICER Unavailable Unavailable DESJARLAIS, LISA VENDING ROUTE SERVICER Unavailable Unavailable DESJARLAIS, LISA VENDING ROUTE SERVICER Unavailable Unavailable Tobin, Eloisa SENIOR PRODUCTION SUPERVISOR SENIOR PRODUCTION SUPERVISOR Unavailable Unavailable [facility], RFROST MORA PA KARUNA Unavailable Unavailable Tobin, A Eloisa SENIOR PRODUCTION SUPERVISOR Unavailable Unavailable Tobin, A Eloisa SENIOR PRODUCTION SUPERVISOR Unavailable Unavailable Tobin, A Eloisa SENIOR PRODUCTION SUPERVISOR Unavailable Unavailable Tobin, A Eloisa SENIOR PRODUCTION SUPERVISOR Unavailable Unavailable Tobin, A Elosia SENIOR PRODUCTION SUPERVISOR Unavailable Unavailable Tobin, A Eloisa SENIOR PRODUCTION SUPERVISOR Unavailable Unavailable Tobin, A Eloisa SENIOR PRODUCTION SUPERVISOR Unavailable Unavailable Tobin, A Eloisa SENIOR PRODUCTION SUPERVISOR Unavailable Unavailable Tobin, A Eloisa SENIOR PRODUCTION SUPERVISOR Unavailable Unavailable Tobin, A Eloisa SENIOR PRODUCTION SUPERVISOR Unavailable Unavailable Tobin, A Eloisa SENIOR PRODUCTION SUPERVISOR Unavailable Unavailable Tobin, A Eloisa SENIOR PRODUCTION SUPERVISOR Unavailable Unavailable Tobin, A Eloisa SENIOR PRODUCTION SUPERVISOR Unavailable Unavailable Tobin, A Eloisa SENIOR PRODUCTION SUPERVISOR Unavailable Unavailable Tobin, A Eloisa SENIOR PRODUCTION SUPERVISOR Unavailable Unavailable Tobin, A Eloisa SENIOR PRODUCTION SUPERVISOR Unavailable Unavailable Tobin, A Eloisa SENIOR PRODUCTION SUPERVISOR Unavailable Unavailable Tobin, A Eloisa SENIOR PRODUCTION SUPERVISOR Unavailable Unavailable Tobin, A Eloisa SENIOR PRODUCTION SUPERVISOR Unavailable Unavailable Tobin, A Eloisa SENIOR PRODUCTION SUPERVISOR Unavailable Unavailable Tobin, A Eloisa SENIOR PRODUCTION SUPERVISOR Unavailable Unavailable Tobin, A Eloisa SENIOR PRODUCTION SUPERVISOR Unavailable Unavailable Tobin, A Eloisa SENIOR PRODUCTION SUPERVISOR Unavailable Unavailable Tobin, A Eloisa SENIOR PRODUCTION SUPERVISOR Unavailable Unavailable Tobin, A Eloisa SENIOR PRODUCTION SUPERVISOR Unavailable Unavailable Tobin, A Eloisa SENIOR PRODUCTION SUPERVISOR Unavailable Unavailable Tobin, A Eloisa SENIOR PRODUCTION SUPERVISOR Unavailable Unavailable Tobin, A Eloisa SENIOR PRODUCTION SUPERVISOR Unavailable Unavailable Re-disclosure Warning The records that [...] is protected by Article 27-F of the [facility] Public Health law. If you continue you may have access to information: Regarding HIV / AIDS; Provided by facilities licensed or operated by the [facility] Office of Mental Health; or Provided by the [facility] Office for People With Developmental Disabilities. If such information is present, then the following [facility] mandated warning applies: This information has been [...] law may result in a fine or long term sentence or both. A general authorization for the release of medical or other information is NOT sufficient authorization for further disc losure. Allergies and Adverse Reactions Type Description Substance Reaction Status Data Source(s ) Drug Class NO KNOWN ALLERGIES NO KNOWN ALLERGIES [facility] Family History Family Member Name Family Member Gender Family Member Status Date o f Status Description Data Source(s) Unknown Male Problem [facility] ([facility]) () Encounters Encounter Providers Location Date Indications Data Source(s ) Karen Seaman NPP: [address] [place] [id number], Ph. Attender: KAREN SEAMAN NP [place] - [facility] Medical 05/24/2020 12:00:00 AM EST [facility] ([facility]) Outpatient Attender: Eloisa PENA 02/08/2020 03:5 3:[address] [facility] Outpatient Attender: JEAN ARREOLA 02/05/2020 01:19:[address] [facility] Outpatient Attender: Eloisa PENA 01/28/2020 04:1 6:[address] [facility] Outpatient Attender: JEAN ARREOLA 01/27/2020 10:34:[address] [facility] Outpatient Attender: Eloisa ARREOLA 01/27/2020 07:5 5:[address] [facility] Outpatient Attender: Eloisa ARREOLA 01/25/2020 12:1 8:[address] [facility] Outpatient Attender: JEAN ARREOLA 01/25/2020 10:46:[address] [facility] Outpatient Attender: JEAN ARREOLA 01/25/2020 08:57:[address] [facility] Emergency Attender: Brandon Reddy MD [id number] 06:10:00 PM EDT - 01/24/2020 03:52:00 AM EDT Laceration without foreign body of lip, initial encounter [facility] Laceration without foreign body of lip, initial encounter Patient discharged. Emergency Attender: TIMOTHY PARKER 06/2019 04:05:00 PM EDT - 01/23/2020 10:00:00 PM EDT [facility] Patient discharged. Outpatient Attender: Eloisa PENA FP 01/22/2020 10:4 8:02 AM EDT [facility] Outpatient Attender: Eloisa PENA FP 01/19/2020 08:3 2:00 AM EDT [facility] Outpatient Attender: Eloisa PENA FP 01/15/2020 01:3 2:01 PM EDT [facility] Outpatient Attender: JEAN PENA FP 01/15/2020 08:42:00 A M EDT [facility] Outpatient Attender: JEAN PENA FP 01/11/2020 11:27:01 A M EDT [facility] Outpatient Attender: JEAN PENA FP 12/18/2019 03:08:00 P M EDT [facility] Outpatient Attender: JEAN PENA FP 12/18/2019 10:14:03 A M EDT [facility] Outpatient Attender: Eloisa PENA FP 12/18/2019 10:1 3:01 AM EDT [facility] Outpatient Attender: JEAN PENA FP 12/18/2019 09:29:01 A M EDT [facility] Outpatient Attender: JEAN PENA FP 12/18/2019 09:21:00 A M EDT [facility] Outpatient Attender: JEAN PENA FP 12/17/2019 04:28:00 P M EDT [facility] Outpatient Attender: Eloisa PENA FP 12/17/2019 03:3 6:04 PM EDT [facility] Outpatient Attender: Eloisa PENA FP 12/17/2019 02:2 9:00 PM EDT [facility] Outpatient Attender: Eloisa PENA FP 12/17/2019 02:2 8:01 PM EDT [facility] Outpatient Attender: Eloisa PENA FP 12/17/2019 01:4 7:02 PM EDT [facility] Outpatient Attender: JEAN PENA FP 12/17/2019 01:13:00 P M EDT [facility] Outpatient Attender: JEAN PENA FP 12/17/2019 12:38:01 P M EDT [facility] Outpatient Attender: Eloisa ARREOLA 12/16/2019 03:5 4:[address] [facility] Outpatient Attender: Eloisa PENA FP 12/15/2019 08:3 9:[address] [facility] Outpatient Attender: JEAN PENA FP 11/18/2019 11:20:[address] [facility] Outpatient Attender: VICENTE DANIELS 11/12/2019 05:00:00 PM E [facility] Outpatient Attender: LISA SYKES VENDING ROUTE SERVICER 11/10/2019 01: 40:00 PM [facility] Preadmit Attender: VICENTE DANIELS 11/10/2019 08:06:00 AM E [facility] Admission cancelled. Disregard status an d admitted date. Outpatient Attender: LISA SYKES NP 10/13/2019 01: 00:00 PM [facility] Outpatient Attender: JEAN ARREOLA 10/13/2019 09:55:[address] [facility] Outpatient Attender: JEAN PENA FP 10/06/2019 10:04:[address] [facility] Outpatient Attender: VICENTE DANIELS 10/05/2019 06:00:00 PM E [facility] Outpatient Attender: Eloisa PENA FP 09/25/2019 11:1 6:[address] [facility] Outpatient Attender: LISA SYKES VENDING ROUTE SERVICER 09/22/2019 11: 40:00 AM [facility] Outpatient Attender: JEAN PENA FP 09/19/2019 12:14:[address] [facility] Outpatient Attender: JEAN PENA FP 09/18/2019 11:28:[address] [facility] Outpatient Attender: Eloisa ARREOLA 09/17/2019 03:0 1:[address] [facility] Outpatient Attender: JEAN ARREOLA 09/16/2019 09:01:[address] [facility] Outpatient Attender: JEAN ARREOLA 09/16/2019 11:50:[address] [facility] Outpatient Attender: JEAN ARREOLA 09/15/2019 04:14:[address] [facility] Outpatient Attender: JEAN Rudd SENIOR PRODUCTION SUPERVISOR 09/15/2019 04:14:02 P M EDT [facility] Outpatient Attender: Eloisa Rudd SENIOR PRODUCTION SUPERVISOR 09/15/2019 04:1 4:01 PM EDT [facility] Outpatient Attender: Eloisa Rudd SENIOR PRODUCTION SUPERVISOR 09/14/2019 12:2 0:[address] [facility] Outpatient Attender: JEAN Rudd SENIOR PRODUCTION [facility] 09/14/2019 12:19:[address] [facility] Outpatient Attender: Eloisa Rudd SENIOR PRODUCTION [facility] 09/13/2019 07:4 3:[address] [facility] Outpatient Attender: SENIOR PRODUCTION SUPERVISOR Tobin SENIOR PRODUCTION SUPER[facility] 09/11/2019 03:46:01 P M EDT [facility] Outpatient Attender: JEAN Rudd SENIOR PRODUCTION [facility] 09/11/2019 03:35:[address] [facility] Outpatient Attender: VICENTE DANIELS 09/09/2019 04:00:00 PM E [facility] Outpatient Attender: LISA SYKES VENDING ROUTE SERVICER 09/08/2019 03: 40:00 PM EDT [facility] Outpatient Attender: JEAN Rudd SENIOR PRODUCTION [facility] 09/08/2019 02:17:[address] [facility] Outpatient Attender: JEAN Rudd SENIOR PRODUCTION [facility] 09/08/2019 10:45:[address] [facility] Outpatient Attender: JEAN Rudd SENIOR PRODUCTION [facility] 09/08/2019 10:44:[address] [facility] Outpatient Attender: SENIOR PRODUCTION SUPERVISOR Tobin SENIOR PRODUCTION SUPER[facility] 09/07/2019 10:02:[address] [facility] Outpatient Attender: VICENTE DANIELS 09/03/2019 09:30:00 AM E [facility] Outpatient Attender: ROLAN HOLT [facility] 07/22 05:12:[address] [facility] Outpatient Attender: KARUNA ZAPATA [facility] 08/18/2019 04:28:[address] [facility] Outpatient Attender: VICENTE DANIELS 08/12/2019 11:00:00 AM E [facility] Outpatient Attender: LISA SYKES VENDING ROUTE SERVICER 08/05/2019 01: 20:00 PM [facility] Outpatient Attender: VICENTE DANIELS 08/03/2019 05:00:00 PM E [facility] Outpatient Attender: KARUNA ZAPATA [facility] 07/24/2019 10:00:[address] [facility] Outpatient Attender: [facility] 06/2019 10:00:[address] [facility] Outpatient Attender: ROLAN HOLT [facility] 04/2019 02:30:[address] [facility] Outpatient Attender: KARUNA ZAPATA [facility] 07/22/2019 02:30:[address] [facility] 04/[facility] 02:26:[address] [facility] Outpatient Attender: LISA SYKES VENDING ROUTE SERVICER 07/22/2019 02: 20:00 PM [facility] Outpatient Attender: VICENTE DANIELS 07/22/2019 01:30:00 PM [facility] Outpatient Attender: KARUNA ZAPATA [facility] 07/20/2019 02:48:[address] [facility] Outpatient Attender: KARUNA ZAPATA 07/20/2019 01:34:[address] [facility] Outpatient Attender: JEAN PENA 07/20/2019 11:58:[address] [facility] Outpatient Attender: BILLY BEDOLLACAttender: EL JOHNSON 07/20/2019 11:40:00 AM [facility] Outpatient Attender: VICENTE DANIELS 07/15/2019 11:00:00 AM [facility] Outpatient Attender: LISA SYKES VENDING ROUTE SERVICER 07/15/2019 10: 40:00 AM [facility] Outpatient Attender: Dominga ARREOLA 07/08/2019 11: 07:[address] [facility] Outpatient Attender: LISA SYKES VENDING ROUTE SERVICER 07/03/2019 09: 07:00 AM [facility] Outpatient Attender: JEAN ARREOLA 07/02/2019 04:42:[address] [facility] Outpatient Attender: JEAN ARREOLA 07/02/2019 12:26:00 PM EDT [facility] [address] [place] [address] 07/02/2019 12:00:00 AM EDT eCW1 ([facility]) [facility] [address] [facility] [address] 07/02/2019 12:00:00 AM EDT eCW1 ([facility]) Outpatient Attender: VICENTE DANIELS 07/01/2019 04:00:00 PM [facility] Outpatient Attender: Dominga ARREOLA 06/30/2019 11: 28:00 AM EDT [facility] Outpatient Attender: Dominga ARREOLA 06/25/2019 09: 50:01 AM [facility] Outpatient Attender: JEAN ARREOLA 06/18/2019 09:01:04 PM [facility] Outpatient Attender: JEAN ARREOLA 06/18/2019 02:58:01 PM [facility] Outpatient Attender: JEAN ARREOLA 06/18/2019 02:51:00 PM [facility] Outpatient Attender: JEAN ARREOLA 06/18/2019 02:48:00 PM [facility] Outpatient Attender: JEAN ARREOLA 06/18/2019 02:47:01 PM [facility] Outpatient Attender: JEAN ARREOLA 06/18/2019 11:49:00 AM [facility] Outpatient Attender: JEAN ARREOLA 06/18/2019 11:48:01 AM [facility] Outpatient Attender: JEAN ARREOLA 06/18/2019 10:40:02 AM [facility] Outpatient Attender: JEAN ARREOLA 06/18/2019 10:34:01 AM [facility] Outpatient Attender: JEAN ARREOLA 06/18/2019 09:40:00 AM [facility] Outpatient Attender: JEAN ARREOLA 06/18/2019 09:38:48 AM [facility] Outpatient Attender: JEAN ARREOLA 06/16/2019 03:35:[address] [facility] Outpatient Attender: VICENTE DANIELS 06/16/2019 12:41:00 PM E [facility] Outpatient Attender: JEAN ARREOLA 06/15/2019 09:54:[address] [facility] Outpatient Attender: GUALBERTO HERNANDEZ 05/25/2019 01:58:00 PM E [facility] Outpatient Attender: VICENTE LEON 01/22/2019 09:55:00 AM E [facility] Outpatient Attender: VICENTE LEON 01/21/2019 05:59:00 PM [facility] Outpatient Attender: EL ELIZABETH 01/21/2019 11:00:00 AM ED [facility] Immunizations Vaccine Date Status Description Data Source(s) Tdap 01/24/2020 12:00:00 AM EDT completed Tdap 01/24/2020 [facility] HPV9 06/18/2019 12:00:00 AM EST completed 06/18/2019 0.5 mL [facility]ONEY ([facility]) Medications Medication Brand Name Start Date Product Form Dose Route Admi nistrative Instructions Pharmacy Instructions Status Indications Reaction Description Data Source(s) bacitracin ointment [id number] 01/24/2020 03:15:00 AM EDT Topical completed Topical, Once, Sun 1 at 0315, For 1 dose
Apply to lip and chin
[facility] Medication administered onsite 0.5 ML Bordetella [...] Once, 01/24/20 at 0130, For 1 dose [facility] Medication administered onsite [id number] (LET) 4-0.05-0.5 % topical gel [id number] 01/24/2020 01:15:00 AM EDT Topical completed Topical, Once, 01/24/20 at 0115, For 1 dose
For TOPICAL use ONLY.
[facility] Medication administered onsite Zofran ODT 4 MG UNK 07/02/2019 12:00:00 AM EDT active 1 tablet on the tongue and allow to dissolve eCW1 ([facility]) 500 mg 05/26/2019 12:00:00 AM EST tablet 2 TAKE 2 TABLETS BY MOUTH NOW TAKE 2 TABLETS BY MOUTH NOW SOLD: 05/26/2019 [facility] ol[facility] 10 MG Oral Tablet OLANZapine (ZYPREXA) 10 M G tablet OLANZapine (ZYPREXA) 10 MG tablet 03/22/2019 12:00:00 AM EST 10 mg Oral active Take 1 tablet (10 mg total) by mouth nightly [facility] oxcarbazepine 150 MG Oral Tablet OXcarbazepine (TRILEP YASH) 150 MG tablet OXcarbazepine (TRILEPTAL) 150 MG tablet 03/22/2019 12:00:00 AM EST 150 mg Oral active Take 1 tablet (150 m g total) by mouth 2 (two) times a day [facility] Prazosin 1 MG Oral Capsule prazosin 1 mg capsule prazosin 1 mg capsule completed prazosin 1 MG Oral Capsul e [place] ([facility]) Ondansetron 4 MG Disintegrating Oral Tab let ondansetron 4 mg disintegrating tablet ondansetron 4 mg disintegrating tablet completed ondansetron 4 MG Disintegrating Oral Tablet [place] ([facility]) 24 HR Nicotine 0.875 MG/HR Transdermal P atch nicotine 21 mg/24 hr daily transdermal patch nicotine 21 mg/24 hr daily transdermal patch completed 24 HR nicotine 0.875 MG/HR Trans dermal System HONEY ([facility]) olanzapine 10 MG Oral Tablet olanzapine 10 mg tablet olanzapine 10 mg tablet completed olanzapine 10 MG Oral Tablet [facility] ([facility]) Escitalopram 10 MG Oral Tablet escitalopram 10 mg tabl et escitalopram 10 mg tablet completed escitalopram 10 MG Oral Tablet [place] ([facility]) Hydroxyzine Hydrochloride 25 MG Oral Tablet hydroxyzin e HCl 25 mg tablet hydroxyzine HCl 25 mg tablet completed hydroxyzine hydrochloride 25 MG Oral Tablet [facility]Y ([facility]) Docusate Sodium 100 MG Oral Capsule [DOK] DOK 100 mg capsule DOK 100 mg capsule completed docusate sodiu m 100 MG Oral Capsule [DOK] [place] ([facility]) Azithromycin 500 MG Oral Tablet azithromycin 500 mg ta blet azithromycin 500 mg tablet completed azithromycin 50 0 MG Oral Tablet [place] ([facility]) [place] Carbonate 150 MG Oral Capsule lithium carbonat e 150 mg capsule lithium carbonate 150 mg capsule completed lithium carbonate 150 MG Oral Capsule [place] ([facility] er) 24 HR venlafaxine 37.5 MG Extended Relea se Oral Capsule venlafaxine ER 37.5 mg capsule,extended release 24 hr venlafaxine ER 37.5 mg capsule,extended release 24 hr completed 24 HR v enlafaxine 37.5 MG Extended Release Oral Capsule [place] ([facility]) olanzapine 2.5 MG Oral Tablet olanzapine 2.5 mg tablet olanz apine 2.5 mg tablet completed olanzapine 2.5 MG Oral Tablet [place] ([facility]) Clonidine Hydrochloride 0.1 MG Oral Tablet clonidine H Cl 0.1 mg tablet clonidine HCl 0.1 mg tablet completed clonidine hydrochloride 0.1 MG Oral Tablet [place] ([facility]) Escitalopram 20 MG Oral Tablet escitalopram 20 mg tabl et escitalopram 20 mg tablet completed escitalopram 20 MG Oral Tablet [place] ([facility]) oxcarbazepine 150 MG Oral Tablet oxcarbazepine 150 mg tablet oxcarbazepine 150 mg tablet completed oxcarbazepin e 150 MG Oral Tablet [place] ([facility]) Clonidine Hydrochloride 0.2 MG Oral Tablet clonidine H Cl 0.2 mg tablet clonidine HCl 0.2 mg tablet completed clonidine hydrochloride 0.2 MG Oral Tablet [place] ([facility]) venlafaxine 37.5 MG Oral Tablet venlafaxine 37.5 mg ta blet venlafaxine 37.5 mg tablet completed venlafaxine 37. 5 MG Oral Tablet [place] ([facility]) Omeprazole 20 MG Delayed Release Oral Ca psule omeprazole 20 mg capsule,delayed release omeprazole 20 mg capsule,delayed release completed omeprazole 20 MG Delayed Release Oral Capsule [place] ([facility]) Ondansetron 4 MG Oral Tablet ondansetron HCl 4 mg tabl et ondansetron HCl 4 mg tablet completed ondansetron 4 M G Oral Tablet [facility] ([facility]) olanzapine 5 MG Oral Tablet olanzapine 5 mg tablet olanzapine 5 mg ta blet completed olanzapine 5 MG Oral Tablet [facility] ([facility]) Insurance Providers Payer name Policy type / Coverage type Policy ID Covered green party ID Covered green party's relationship to perry Policy Perry Plan Information SELF PAY ONLY [id number] SP [id number] [facility] COMMUNITY PLAN MCDO [id number] SP [id number] Medicaid S [id number] S [id number] Managed Care - [facility] Community Plan P [id number] S [id number] [facility] I [id number] Self [id number] [facility] MEDICAID [id number] S [id number] [facility] [id number] S [id number] [facility] I [id number] Self [id number] GOVERNMENTAL GENERIC B [id number] Damon [id number] MEDICAID M [id number] Self [id number] SELF PAY [id number] S [id number] [id number] SP [id number] [facility] O [id number] S [id number] Medicaid S [id number] S [id number] [place] [id number] SP [id number] [id number] SP [id number] Managed Care [facility] Community Plan P [id number] S [id number] [facility] COMMUNITY PLAN [facility] [id number] SP [id number] MEDICAID [id number] [facility] MEDICAID [id number] [facility] MEDICAID [id number] Mary [id number] [facility] COMMUNITY PLAN XIX [id number] 18 [id number] [facility] MEDICAID [id number] S [id number] MEDICAID -O/P EMERGENCY ROOM [id number] 18 [id number] MEDICAID -O/P EMERGENCY ROOM [id number] 18 [id number] [facility] [place] [id number] 18 [id number] [facility] [place] [facility] [place] [id number] 18 [id number] Medicaid S [id number] S [id number] Managed Care - [facility] Community Plan P [id number] S [id number] Medicaid S [id number] S [id number] Managed Care [place] P [id number] S [id number] Medicaid S [id number] S [id number] [facility] [id number] SP [id number] Managed Care [place] P [id number] S [id number] ANSI-Commercial [id number] [facility] [place] [id number] S [id number] [facility] [id number] SP [id number] Managed Care [place] P [id number] S [id number] [facility] [place] [id number] Self [id number] [facility] Commercial [id number] Self [id number] [facility] [place] [id number] 18 [id number] [facility] [place] [facility] -PHYSICIAN [id number] 18 [id number] Medicaid S [id number] S [id number] [facility] [place] [id number] Self [id number] [facility] [place] [id number] Self [id number] [facility] [place] [id number] Self [id number] [facility] [place] [id number] Self [id number] MEDICAID [id number] SP [id number] MEDICAID [facility] [id number] S [id number] [facility] MEDICAID [facility] HMO [id number] S [id number] MEDICAID M [id number] S [id number] O UNAVAILABLE UNAVAILA BLE [place] Medicaid F [id number] SELF 7 [id number] MEDICAID [facility] [id number] SP [id number] Medicaid [facility] S D [id number] SELF [id number] Medicaid [facility] S D [id number] SELF [id number] Medicaid [facility] S D 1 SELF 1 [place] [id number] Child [id number] MEDICAID [facility] [id number] SP [id number] [facility] [id number] SP [id number] [facility] [id number] SP [id number] SELF PAY UNAVAILABLE SP UNAVAILA BLE [facility] O [id number] P [id number] [place] U[place] UNAVAILABLE PCP [facility] O [id number] S [id number] MEDICAID W [id number] S [id number] Problems, Conditions, and Diagnoses Code Display Name Description Problem Type Effective Dates Data Source(s) Z62.29 Other upbringing away from parents UPBRINGING AWAY FRO M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 at 5:11 PM Name Value Range Interpretation Code Description Data Kaylee rce(s) Supporting Document(s) ID Date Data Source [id number] 07/20/2019 08:24:[address] [facility] Name Value Range Interpretation Code Description Data Kaylee rce(s) Supporting Document(s) HCT 43.3 % 42.0-52.[address] [facility] HGB 14.8 g/dL 13.5-17.[address] [facility] MCH 34.2 G/DL pg 32.0-36.5 N [facility] MCHC 30.4 PG % 27.0-33.[address] [facility] PLATELETS 295 10 10*3/mm3 150-[address] [facility] RBC 4.87 10 10*6/mm3 4.30-6.[address] [facility] RDW 12.8 % 11.5-14.[address] [facility] WBC TOTAL 7.4 4.0-10.0 N [facility] ID Date Data Source [id number] 07/20/2019 08:24:[address] [facility] Name Value Range Interpretation Code Description Data Kaylee rce(s) Supporting Document(s) BG FASTING 98 mg/dL 70-[address] [facility] y Health ID Date Data Source [id number] 07/20/2019 01:52:[address] [facility] Measurements & CalculationsHeight: 66 inches (5 [...] (ER) or urgent care clinic? Yes - [facility] ER gi issuesHave you seen another healthcare provider? Yes - [facility], [facility] NrcilHave you [...] his own home with a [facility] Centerexual orientation: [place]. Sexually Active: Yes. Advised to Quit/Tobacco Education: YesChief Complaint2 [facility] Present Illness (HPI)19 yo male here [...] was switched from Venlafaxine and Olanzapine to [place] and Clonidine. Pt feels moods are much worse since the change, reports e xcessive anxiety and mood swings now. Had a phone visit 07/15/2019 and reports pt was advised to increase [place] to 650mg BID, but states med was never sent. Pt states his life has settled and he feels that his moods should be better; is no longer homeless, has an apt by DSS, is thrilled about that. Spoke with nurse Sakshi at [facility] today with Cedrick in my office. She confirms the dates as above and that Brigitte is off today but will be working tomorrow. Sakshi states on 07/15/2019 Lexapro was added (but it wasn't sent in, that was an error and will be sent tomorrow), the clonidine continued at the same dose and the [place] is supposed to be 150mg in the AM and 300mg in the PM. No recent lithium levels. HPI performed by: Karuna PARKER, July 20, 2019 2:21 PMTransitions of Care InboundProblem ReviewProblem List was reviewed and/or updated during this visit.Medication Reconciliation & ReviewMedication List was reviewed and/or updated during this visit, including review of any xszc-ovn-owppeph medications, herbal therapies, and/or supplements.Allergy ReviewAllergy List [...] health is? ExcellentAssessment & Plan Probl ems:Added: [place] monitoring (ICD-V58.83) (PNQ22-X91.81) Assessment: Instructions: Take [place] as prescribed, currently supposed to be taking the 150mg capsules: 1 capsule in the mornin and 2 capsules in the evening. Also take clonidine as prescribed. I have requested your prescriber at [facility] call you tomorrow to touch base on your moods. Please go to the hospital for any significant decline in your moods. Complete your blood work today as ordered.Abnormal liver function (ICD-573.9) (FKS79-P82.89) Assessment: Instructions: Recheck labs as ordered today.Assessed:Mood disorder (ICD-296.90) (IDA40-U59) Assessment: Instructions: As above.Removed:Homelessness (ICD- V60.0) (FXI53-P91.0)Patient Instructions/Care Plan: [place] monitoring: Take [place] as prescribed, currently supposed to be taking the 150mg capsules: 1 capsule in the mornin and 2 capsules in the evening. Also take clonidine as prescribed. I have requested your prescriber at [facility] call you tomorrow to touch base on [...] HCL 4 MG ORAL TABLET-1 tab po g9rMexyiar:VENLAFAXINE HCL 37.5 MG ORAL TABLET-1 tab po daily Qty: 30[Tablet] Refills: 0, OLANZAPINE 5 MG ORAL TABLET-1 tab po daily at bedtime Qty: 30[Tablet] Refills: 0Allergies:No Known Allergies (updated 07/20/2019) Orders:COMP METABOLIC PANEL [CPT-76352] CBC W/DIFF [CPT-15584] [place] [77354] Urine Drug Screen w/ Confirmation [CPT-96122] Adult - Ofc Vst, EST, Level III [CPT-21004] Follow-Up Return to clinic: in 4 weeks for follow upAdditional Follow-Up: GI follow-upClinical Visit Summary CompletedElectroni cliff signed by Karuna PARKER on 07/22/2019 at 2:26 PM Name Value Range Interpretation Code Description Data Kaylee rce(s) Supporting Document(s) ID Date Data Source [id number] 06/18/2019 10:01:[address] [facility] Measurements & CalculationsHeight: 66 inches (5 [...] [facility]: [facility]2019Have you [...] bedroom appt. Pt currently staying at [facility] [employer] [facility], but pt states they are trying to get him more permanent placement. States the two bedrooms are all that are available. Pt reports bed bugs in the [employer] and is uncomfortable with the current living conditions. Currently set to graduate high school in September 2020, was in foster care and is now living on his own with no support system in place. Pt states works with and attends [employer] and [employer]. Pt had to reschedule today's [facility] hospital discharge appt due to weather and [...] during this visit, including review of any byps-epk-jbotuhc medications, herbal therapies, and/or supplements.Allergy ReviewAllergy List [...] Problems:Added: BMI 21.0-21.9 (ICD-V85.1) (ICD10- Z68.21)Homelessness (ICD-V60.0) (ZTM80-E58.0) Assessment: Instructions: Letter of recommendation given for permanent housing. Also coordinated with Apryl Pulido here to be in touch with you.Assessed:Mood disorder (ICD-296.90) (PVH31-B83) Assessment: Instructions: Continue per [facility]. Refills sent for your medications due to today's appt being cancelled.Trying to give up smoking (QNK64-Z16.0) Assessment: Instructions: Quit as you have planned.Vaccination (ICD-V05.9) (TQL33-O39) Assessment: Instructions: Final Gardisil vaccine given today [...] 0Allergies:No Known Allergies (updated 06/18/2019) Orders:Gardasil 9 [CPT-46937] 53769 - Immo Admin (over 19 yrs), 1st Vaccine [CPT-01505] Adult - Ofc Vst, EST, Level III [CPT-36288] Follow-Up Return to clinic: as needed, 6 Weeks for follow upAdditional Follow-Up: transgender initial with KateClinical Visit Summary CompletedMedications:OLANZAPINE 5 MG ORAL TABLET (OLANZAPINE) 1 tab po daily at bedtime #30[Tablet] x 0 Entered and Authorized by: Karuna PARKER Method used: Electronically to [facility] (retail) [address] [place], [place] [id number] Note to Pharmacy: Route: ORAL; RxID: [id number] HCL 37.5 MG ORAL TABLET (VENLAFAXINE HCL) 1 tab po daily #30[Tablet] x 0 Entered and Authorized by: Karuna PARKER Method used: Electronically to [facility] (retail) [address] [place], [place] [id number] Note to Pharmacy: Route: ORAL; RxID: [id number]][Immunization Management]The patient was counseled by the physician [...] / Exp.Date: [employer] / [id number] / 1Amt. Given / Route / Site: 0.5 mL / IM / Right DeltoidNDC / CVX: [id number] / 165Administered Date: 06/18/2019 10:51VFC Eligibility: Not VFC EligibleVIS Date: 02/18/2019VIS Given / VIS Given On: Yes / 06/18/2019Comments: Administered by: Anni Sen LPN Name Value Range Interpretation Code Description Data Kaylee rce(s) Supporting Document(s) Procedure Social History Code Duration Value Status Description Data Source(s ) Alcohol intake 01/23/2020 12:00:00 AM EDT Lifetime non-drinker (finding) completed Lifetime non-drinker (finding) [facility] ital Smoking 01/23/2020 12:00:00 AM EDT Current every day smoker co mpleted Current every day smoker [facility] Vital Signs ID Date Data Source UNK Name Value Range Interpretation Code Description Data Source(s) Body weight 2128 [oz_av] 2128 [oz_av] HONEY ([facility]) Body mass index (BMI) [Ratio] 21.5 kg/m2 21.5 k g/m2 HONEY ([facility]) Body height 66 [in_i] 66 [in_i] LEHIGH ACRES ([facility]) Body weight 2006.4 [oz_av] 2006.4 [oz_av] ATHEN A ([facility]) Systolic blood pressure 138 mm[Hg] 138 mm[Hg] A [facility] ([facility]) Body mass index (BMI) [Ratio] 20.31 kg/m2 20.31 kg/m2 HONEY ([facility]) Body height 66 [in_i] 66 [in_i] HONEY ([facility]) Diastolic blood pressure 82 mm[Hg] 82 mm[Hg] HONEY ([facility]) Body weight 2088 [oz_av] 2088 [oz_av] HONEY ([facility]) Systolic blood pressure 111 mm[Hg] 111 mm[Hg] A [facility] ([facility]) Body mass index (BMI) [Ratio] 21.14 kg/m2 21.14 kg/m2 HONEY ([facility]) Body height 66 [in_i] 66 [in_i] HONEY ([facility]) Diastolic blood pressure 75 mm[Hg] 75 mm[Hg] HONEY ([facility]) Body weight 2118.08 [oz_av] 2118.08 [oz_av] ATH JAY ([facility]) Systolic blood pressure 117 mm[Hg] 117 mm[Hg] A THENA ([facility]) Body mass index (BMI) [Ratio] 21.44 kg/m2 21.44 kg/m2 HONEY ([facility]) Body height 66 [in_i] 66 [in_i] HONEY ([facility]) Diastolic blood pressure 71 mm[Hg] 71 mm[Hg] HONEY ([facility]) Body weight 2224 [oz_av] 2224 [oz_av] HONEY ([facility]) Systolic blood pressure 112 mm[Hg] 112 mm[Hg] A THENA ([facility]) Body mass index (BMI) [Ratio] 22.52 kg/m2 22.52 kg/m2 HONEY ([facility]) Body height 66 [in_i] 66 [in_i] HONEY ([facility]) Diastolic blood pressure 73 mm[Hg] 73 mm[Hg] HONEY ([facility]) Diastolic blood pressure 79 mm[Hg] 79 mm[Hg] eCW1 ([facility]) Systolic blood pressure 131 mm[Hg] 131 mm[Hg] e CW1 ([facility]) Body temperature 98.2 [degF] 98.2 [degF] eCW1 ( [facility]) Respiratory rate 18 /min 18 /min eCW1 ([facility]) Heart rate 74 /min 74 /min eCW1 ([facility]) Body mass index (BMI) [Ratio] 23.69 kg/m2 23.69 kg/m2 eCW1 ([facility]) Body height 64 [in_us] 64 [in_us] eCW1 ([facility]) Body weight Measured 138 [lb_av] 138 [lb_av] eC W1 ([facility]) Body weight 2128 [oz_av] 2128 [oz_av] HONEY ([facility]) Systolic blood pressure 129 mm[Hg] 129 mm[Hg] A THENA ([facility]) Body mass index (BMI) [Ratio] 21.54 kg/m2 21.54 kg/m2 HONEY ([facility]) Body height 66 [in_i] 66 [in_i] HONEY ([facility]) Diastolic blood pressure 70 mm[Hg] 70 mm[Hg] HONEY ([facility]) ID Date Data Source [id number] 01/26/2020 02:45:29 PM EDT [facility] Name Value Range Interpretation Code Description Data Source(s) WEIGHT RECORDED 133.82 lb 133.82 lb [facility] TRANSFER FROM [facility] Patient Treatment Plan of Care Planned Activity Planned Date Details Description Data Source (s) Zofran ODT 4 MG 07/02/2019 12:00:00 AM EDT eCW1 ([facility]) olanzapine 10 MG Oral Tablet 03/22/2019 12:00:00 AM [facility] oxcarbazepine 150 MG Oral Tablet 03/22/2019 12:00:00 AM [facility] 24 HR venlafaxine 37.5 MG Extended Release Oral Capsule HONEY ([facility]) venlafaxine 37.5 MG Oral Tablet HONEY ([facility]) Prazosin 1 MG Oral Capsule A THENA ([facility]) oxcarbazepine 150 MG Oral Tablet HONEY ([facility]) Ondansetron 4 MG Oral Tablet HONEY ([facility]) Ondansetron 4 MG Disintegrating Oral Tablet HONEY ([facility]) Omeprazole 20 MG Delayed Release Oral Capsule HONEY ([facility]) olanzapine 5 MG Oral Tablet HONEY ([facility]) olanzapine 2.5 MG Oral Tablet HONEY ([facility]) olanzapine 10 MG Oral Tablet HONEY ([facility]) 24 HR Nicotine 0.875 MG/HR Transdermal Patch HONEY ([facility]) [place] Carbonate 150 MG Oral Capsule HONEY ([facility]) Hydroxyzine Hydrochloride 25 MG Oral Tablet HONEY ([facility]) Escitalopram 20 MG Oral Tablet HONEY ([facility]) Escitalopram 10 MG Oral Tablet HONEY ([facility]) Docusate Sodium 100 MG Oral Capsule [DOK] HONEY ([facility]) Clonidine Hydrochloride 0.2 MG Oral Tablet HONEY ([facility]) Clonidine Hydrochloride 0.1 MG Oral Tablet HONEY ([facility]) Azithromycin 500 MG Oral Tablet HONEY ([facility])
== END 2020-06-12 02:18 | disposition home or self-care (01) ==
LOC: M ED 01:32
DX: L85.3 Xerosis cutis (principal); F41.9 Anxiety disorder, unspecified; F31.9 Bipolar disorder, unspecified; F17.200 Nicotine dependence, unspecified, uncomplicated

== ENCOUNTER 2021-08-31 00:05 | Emergency (ER) | payer OTHER ==
[~2021-08-31] VITALS: Ht 172.7 cm; Wt 60.0 kg
[~2021-08-31 00:05] MED LIST changes: -OLAN10TA2; +OLAN1TAB16 PO; +OLAN1TAB20; -OLAN5TAB PO; +OMEP-173 PO; -OMEP-218 PO
[2021-08-31 00:06] VITALS: BP 122/74
== END 2021-08-31 03:25 | disposition left against medical advice (07) ==
LOC: M ED 00:05
DX: Z53.21 Procedure and treatment not carried out due to patient leaving prior to being seen by health care provider (principal)

== ENCOUNTER 2021-09-04 02:03 | Emergency (ER) | payer OTHER ==
[~2021-09-04] VITALS: Ht 172.7 cm; Wt 59.1 kg
[2021-09-04 02:04] VITALS: BP 127/69
== END 2021-09-04 06:05 | disposition left against medical advice (07) ==
LOC: M ED 02:03
DX: Z53.21 Procedure and treatment not carried out due to patient leaving prior to being seen by health care provider (principal)

== ENCOUNTER → 2023-01-25 | Outpatient (REF) | payer OTHER, MEDICAID ==
[2023-01-25 18:18] LABS: APPEARANCE, URINE CLEAR (CLEAR); BACTERIA, URINE AUTO NEGATIVE (NEGATIVE); BILIRUBIN, URINE AUTO NEGATIVE (NEGATIVE); BLOOD, URINE BLOOD NEGATIVE (NEGATIVE); COLOR, URINE YELLOW (YELLOW); GLUCOSE, URINE (UA) AUTO NEGATIVE (NEGATIVE); KETONE, URINE AUTO TRACE mg/dL (NEGATIVE); LEUKOCYTE ESTERASE, URINE AUTO NEGATIVE (NEGATIVE); MUCUS, URINE SMALL (NEGATIVE); NITRITE, URINE AUTO NEGATIVE (NEGATIVE); PROTEIN, URINE AUTO NEGATIVE (NEGATIVE); RBC, URINE AUTO 1 /HPF (0-3); SPECIFIC GRAVITY URINE AUTO 1.027 (1.002-1.035); SQUAMOUS EPITHELIAL CELL UR AU 0 /HPF (0-6); WBC, URINE AUTO 3 /HPF (0-3)
== END ==
LOC: M LAB REF 18:02
PROVIDERS: ATTEND Nurse Practitioner Family
DX: N50.812 Left testicular pain (principal)

== ENCOUNTER → 2023-02-04 | Outpatient (CLI) | payer OTHER | LOC: M WHC 13:31 | PROVIDERS: ATTEND Nurse Practitioner Family | DX: N50.812 Left testicular pain (principal) ==

== ENCOUNTER → 2023-05-02 | Outpatient (REF) | payer OTHER, MEDICAID ==
[2023-05-02 13:06] LABS: HEMATOCRIT 43.1 % (42.0-52.0); MEAN CORPUSCULAR HEMOGLOBIN 31.2 pg (27.0-33.0); MEAN CORPUSCULAR HGB CONC 34.8 g/dl (32.0-36.5); MEAN CORPUSCULAR VOLUME 89.6 fl (80.0-96.0); PLATELET COUNT, AUTOMATED 299 10^3/uL (150-450); RED BLOOD COUNT 4.81 10^6/uL (4.30-6.10)
[2023-05-02 13:35] LABS: BLOOD UREA NITROGEN 17 MG/DL (9-23); CALCIUM LEVEL 9.6 MG/DL (8.5-10.1); CARBON DIOXIDE LEVEL 30 MMOL/L (20-31); CHLORIDE LEVEL 107 MMOL/L (98-107); CHOLESTEROL LEVEL 126 MG/DL (<200); CHOLESTEROL RISK RATIO 2.41 (<5); CREATININE FOR GFR 0.79 MG/DL (0.70-1.30); GLOMERULAR FILTRATION RATE > 60.0 (>60); GLUCOSE, FASTING 88 MG/DL (60-100); HDL CHOLESTEROL 52.2 MG/DL (>40); LDL CHOLESTEROL 56.6 MG/DL (<100); NON-HDL-C 73.8 MG/DL; POTASSIUM SERUM 4.6 MMOL/L (3.5-5.1); SODIUM LEVEL 141 MMOL/L (136-145); TRIGLYCERIDES LEVEL 86 MG/DL (<150)
[2023-05-02 13:36] LABS: THYROID STIMULATING HORMONE 0.967 uIU/ML (0.55-4.78); TOTAL 25(OH) VITAMIN D 36.7 NG/ML (20.0-100.0)
[2023-05-03 23:31] LABS: TESTOSTERONE FREE (DIRECT) 13.6 pg/mL (9.3-26.5)
== END ==
LOC: M LAB REF 12:31
PROVIDERS: ATTEND Nurse Practitioner Family
DX: N52.9 Male erectile dysfunction, unspecified (principal); Z13.220 Encounter for screening for lipoid disorders; Z11.9 Encounter for screening for infectious and parasitic diseases, unspecified; E55.9 Vitamin D deficiency, unspecified

== ENCOUNTER → 2023-05-13 | Outpatient (CLI) | payer OTHER | LOC: M RAD 15:17 | PROVIDERS: ATTEND Nurse Practitioner Family | DX: Z01.818 Encounter for other preprocedural examination (principal) ==

== ENCOUNTER 2023-05-17 07:48 | Day surgery (SDC) | payer OTHER ==
[~2023-05-17] VITALS: Ht 170.2 cm; Wt 61.5 kg
[~2023-05-17 07:48] MED LIST changes: +LIDOCAINE 2% 100MG/5ML SDV (FOR ANES.) As Ordered ONE; +ONDANSETRON 4MG 2ML VIAL As Ordered ONE; +ceFAZolin SOD 2 GM in IV 1 EA IV ONE; +propofoL 200 MG/20 ML VIAL As Ordered ONE
[2023-05-17] MEDS ORDERED: MIDAZOLAM INJ 2MG/2ML VIAL As Ordered ONE (07:49)
[2023-05-17] MEDS ORDERED: fentaNYL 100 MCG/2 ML INJECTION As Ordered ONE ×2 (07:50→10:05)
[2023-05-17] MEDS ORDERED: LR 1,000 ML IV SCH ×2 (08:05→10:35)
[2023-05-17] MEDS ORDERED: OXYC1TAB23 PO (09:20)
[2023-05-17] MEDS ORDERED: ACETAMINOPHEN 1000MG 100ML IV BAG As Ordered ONE (09:41)
[2023-05-17] MEDS ORDERED: BACITRACIN OINTMENT 30GM TUBE As Ordered ONE (10:20)
[2023-05-17] MEDS ORDERED: ONDANSETRON 4MG 2ML VIAL IV PRN (10:35)
[2023-05-17] MEDS ORDERED: oxyCODONE 5MG TAB PO PRN (10:50)
[2023-05-17] MEDS ORDERED: PERCOCET 5MG/325MG TAB PO PRN (10:50)
[2023-05-17] MEDS: fentaNYL 100 MCG/2 ML INJECTION IV PRN ×2 (10:53→10:59)
[2023-05-17 11:21] VITALS: BP 130/72; TEMP 97.5; O2SAT 96
== END 2023-05-17 12:19 | disposition home or self-care (01) ==
LOC: M SDC 07:48
PROVIDERS: ATTEND Urology
DX: N48.1 Balanitis (principal); Z87.891 Personal history of nicotine dependence
CPT/HCPCS: 54161; 88304; J0131; J0690; J1100; J2250; J2405; J3010

== ENCOUNTER 2024-06-12 10:14 | Emergency (ER) | payer OTHER ==
[~2024-06-12 10:14] MED LIST changes: -LIDOCAINE 2% 100MG/5ML SDV (FOR ANES.) As Ordered ONE; +ONDA-282 PO; -ONDA4TAB6 PO; -ONDANSETRON 4MG 2ML VIAL As Ordered ONE; +OXYC1TAB23 PO; -ceFAZolin SOD 2 GM in IV 1 EA IV ONE; -propofoL 200 MG/20 ML VIAL As Ordered ONE
[2024-06-12 11:48] LABS: HEMATOCRIT 42.6 % (42.0-52.0); HEMOGLOBIN 14.6 g/dl (13.5-17.5); MEAN CORPUSCULAR HEMOGLOBIN 30.2 pg (27.0-33.0); MEAN CORPUSCULAR HGB CONC 34.3 g/dl (32.0-36.5); PLATELET COUNT, AUTOMATED 331 10^3/uL (150-450); RED BLOOD COUNT 4.84 10^6/uL (4.30-6.10); WHITE BLOOD COUNT 8.1 10^3/uL (4.0-10.0)
[2024-06-12 12:01] LABS: ERYTHROCYTE SEDIMENTATION RATE 2 mm/hr (0-15)
[2024-06-12 12:17] LABS: CK-MB VALUE MASS < 1.0 NG/ML (<3.6)
[2024-06-12 12:18] LABS: C REACTIVE PROTEIN QUANTITATIV < 0.50 MG/DL (<1.0)
[2024-06-12 12:20] LABS: ALBUMIN 4.5 G/DL (3.2-5.2); ALKALINE PHOSPHATASE 68 U/L (40-129); ALT/SGPT 11 U/L (7.0-40); AST/SGOT 12 U/L (<34); BILIRUBIN,DIRECT 0.6 MG/DL (<0.4); BILIRUBIN,TOTAL 1.8 MG/DL (0.3-1.2); BLOOD UREA NITROGEN 11 MG/DL (9-23); CALCIUM LEVEL 9.8 MG/DL (8.5-10.1); CARBON DIOXIDE LEVEL 27 MMOL/L (20-31); CHLORIDE LEVEL 106 MMOL/L (98-107); CREATININE FOR GFR 0.77 MG/DL (0.70-1.30); GLOMERULAR FILTRATION RATE > 60.0 (>60); GLUCOSE, FASTING 99 MG/DL (60-100); POTASSIUM SERUM 4.5 MMOL/L (3.5-5.1); SODIUM LEVEL 143 MMOL/L (136-145); TOTAL PROTEIN 7.1 G/DL (5.7-8.2)
[2024-06-12 12:22] LABS: CPK CREATINE PHOSPHOKINASE 113 U/L (46-171); MB/CK RELATIVE INDEX 0.88 (< OR =4)
[2024-06-12] MEDS: ACETAMINOPHEN *IV* 1,000 MG in IV 1 EA IV ONE (12:34)
[2024-06-12] MEDS ORDERED: ISOVUE-370 76% 100ML VIAL As Ordered ONE (13:19)
[2024-06-12 14:22] VITALS: BP 132/89; TEMP 97.8; O2SAT 100
== END 2024-06-12 14:26 | disposition home or self-care (01) ==
LOC: M ED 10:14
DX: M54.2 Cervicalgia (principal); M25.512 Pain in left shoulder; V49.40XA Driver injured in collision with unspecified motor vehicles in traffic accident, initial encounter; I45.10 Unspecified right bundle-branch block; F17.200 Nicotine dependence, unspecified, uncomplicated; F12.10 Cannabis abuse, uncomplicated; R51.9 Headache, unspecified; Z79.899 Other long term (current) drug therapy; Y92.410 Unspecified street and highway as the place of occurrence of the external cause; Y93.89 Activity, other specified; Y99.9 Unspecified external cause status
CPT/HCPCS: 70450; 71275; 72125; 72128; 72131; 73030; 73080; 73110; 80047; 80048; 80076; 82550; 82553; 84484; 85027; 85652; 86140; 86850; 86900; 86901; 93005; 96374; 99284; J0131; Q9967